=== PATIENT | female | born 1950 | race Caucasian/White ===

== ENCOUNTER 2019-09-26 12:18 | Inpatient (IN) ==
[2019-09-26] MEDS ORDERED: NS 1,000 ML IV ONE ×2 (12:46→12:56)
[2019-09-26] MEDS ORDERED: LANOXIN IV ONE (12:48)
[2019-09-26 12:52] LABS: ALLEN TEST YES; BE -2.9 mmoll (-3.0-3.0); BLOOD TYPE ARTERIAL; HCO3-(ACT) 22.7 mmoll (20.0-26.0); METHB 0.8 % (0.0-1.5); O2(CT) 17.3 mL/dL (15.0-23.0); O2HB 98.1 % (95.0-99.0); PCO2(98.6) 41 mmHg (35-45); PO2(98.6) 348 mmHg (60-100); SAMPLE BLOOD; SAO2 100.4 % (95.0-100.0); THB 11.9 g/dL (11.5-17.4); pH(98.6) 7.35 (7.35-7.45)
[2019-09-26 12:53] LABS: MODALITY NRB
--- NOTE | 2019-09-26 13:13 | Diag Imaging Result Doc PS360 ---
EXAM: CHEST-1 VIEW HISTORY: arrythmia TECHNIQUE: Single view COMPARISON: 09/17/2018 FINDINGS: The lungs are well expanded. The heart is not enlarged. The vessels are not distended. There are no infiltrates. No effusion identified. IMPRESSION: Negative exam. Electronically signed by Elieser Nj 09/26/2019 1:11 PM
[2019-09-26 13:31] LABS: BASO# 0.01 X1000 (0.0-0.2); BASO% 0.1 % (0.0-0.8); EOS# 0.02 X1000 (0.0-0.7); EOS% 0.1 % (0.0-10.0); HEMATOCRIT 37.3 % (37.0-47.0); HEMOGLOBIN 11.9 g/dL (12.0-16.0); IMM GRAN# 0.04 X1000 (0.0-0.04); IMM GRAN% 0.3 % (0.0-0.5); LYMPH# 0.67 X1000 (1.2-3.4); LYMPH% 4.2 % (20.5-51.1); MCH 28.7 PG (27-31); MCHC 31.9 g/dL (33-37); MCV 90.1 FL (81-99); MONO% 8.1 % (1.7-9.3); MPV 12.3 FL (7.4-10.4); NEUT# 13.96 X1000 (1.4-6.5); NEUT% 87.2 % (42.2-75.2); PLT 201 X1000 (130-400); RBC 4.14 XMIL (4.2-5.4); RDW 13.3 % (11.5-14.5)
--- NOTE | 2019-09-26 13:34 | EKG Report ---
Test Performed on : 09/26/2019 12:30:49 PM Test Reason : arrythmia Blood Pressure : / mmHG Vent. Rate : 154 BPM Atrial Rate : 141 BPM P-R Int : 000 ms QRS Dur : 076 ms QT Int : 294 ms P-R-T Axes : 000 052 096 degrees QTc Int : 470 ms Poor data quality, interpretation may be adversely affected Atrial fibrillation. with rapid ventricular response. Cannot rule out Anteroseptal infarct (cited on or before 17-SEP-2018) Abnormal ECG When compared with ECG of 17-SEP-2018 22:28, Atrial fibrillation. has replaced Sinus rhythm. Vent. rate has increased BY 72 BPM Unconfirmed Result
[2019-09-26 13:42] LABS: URINE SOURCE CATH
[2019-09-26 13:54] LABS: BILIRUBIN URINE NEGATIVE (NEGATIVE); BLOOD URINE NEGATIVE (NEGATIVE); COLOR YELLOW; GLUCOSE URINE NEGATIVE (NEGATIVE); KETONE URINE NEGATIVE (NEGATIVE); LEUKOCYTES URINE NEGATIVE (NEGATIVE); NITRITE URINE NEGATIVE (NEGATIVE); PROTEIN URINE 50 mg/dL (NEGATIVE); SP GRAVITY URINE 1.023; TURBIDITY URINE HAZY (CLEAR); UROBILINOGEN URINE NORMAL (NORMAL)
[2019-09-26 13:59] LABS: UR EPITHELIAL CELLS >10 /HPF (<10); URINE BACTERIA NEGATIVE /HPF; URINE WBC <10 /HPF (<10)
[2019-09-26 14:04] LABS: UR AMPHETAMINES QUAL NONE DETECTED (NONE DETECT); UR BARBITUATES QUAL NONE DETECTED (NONE DETECT); UR BENZODIAZEPIN QUAL NONE DETECTED (NONE DETECT); UR CANNABINOIDS QUAL NONE DETECTED (NONE DETECT); UR COCAINE QUAL NONE DETECTED (NONE DETECT); UR METHADONE QUAL NONE DETECTED (NONE DETECT); UR OPIATES QUAL NONE DETECTED (NONE DETECT); UR OXYCODONE QUAL NONE DETECTED (NONE DETECT); UR PCP QUAL NONE DETECTED (NONE DETECT); URINE CASTS GRANULAR PRESENT; URINE SMALL ROUND CELLS NONE SEEN
[2019-09-26 14:17] LABS: AGAP 16; ALB/GLOB RATIO 1.9; ALBUMIN 4.4 g/dL (3.5-5.0); ALKALINE PHOSPHATASE 126 U/L (32-104); BUN 11 mg/dL (8-22); CALCIUM 8.6 mg/dL (8.8-10.2); CHLORIDE 104 mmol/L (98-107); COSMO 284; GLUCOSE 117 mg/dL (70-104); GOT 133 U/L (10-30); GPT 94 U/L (10-36); POTASSIUM 4.1 mmol/L (3.5-5.1); SODIUM 142 mmol/L (136-145); TCO2 22 mmol/L (25-35); TOTAL BILIRUBIN 0.93 mg/dL (0.20-1.00); TOTAL PROTEIN 6.7 g/dL (6.3-8.3)
[2019-09-26 14:27] LABS: INR 1.12; PROTIME 14.6 Seconds (11.0-16.0); PTT 33.7 Seconds (22.3-41.8)
[2019-09-26] MEDS ORDERED: VANCOMYCIN 1 GM/NS 1 GM/250 ML IVPB IV ONE (14:28)
[2019-09-26] MEDS ORDERED: MAXIPIME 1 GM in NS 50 ML IV ONE (14:28)
[2019-09-26] MEDS ORDERED: CARDIZEM IV ONE (14:31)
[2019-09-26] MEDS ORDERED: CARDIZEM 100 MG/NS 100 MG/100 ML IVPB IV SCH (14:45)
--- NOTE | 2019-09-26 15:02 | PROVIDER DOCUMENTATION ---
This chart was entered by Barbie Reina Scribe, acting as scribe for Magdaleno Ny MD. HPI-Cardiac General - General Chief Complaint: Palpitations Stated Complaint: sob chest pain low 02 Time Seen by Provider: 09/26/19 12:43 Source: patient, EMS ([facility]) Allergies/Adverse Reactions: Patient Allergies Allergy/AdvReac Type Severity Reaction Status Date / Time streptokinase Allergy ANAPHYLAXIS Verified 09/17/18 21:45 Home Medications: Home Medication List Medication Instructions Recorded Confirmed Last Taken Type NK [No Home Medications] 09/17/18 09/26/19 Unknown History - History of Present Illness-Cardiac Nature of Presenting Problem: 69 yowf presents to the ed via ems and was cardioverted @ 50 ion and has been is afib since being in ed. pt sts night she cleaned with Clorox and woke saturday morning at 0230am with sob, hurts to breathe. pt sts she has been worsening sx of n/v/d, dizziness, weakness, fatigue, chills and sob since she woke early saturday morning.per ems when AOS pt was lethargic , pale, cool to touch and unable to ambulate. pt had heart rate in 220's. pt sts she has no PCP and does not go to the dr anymore. pt denies any hx of palpitations in the past Location: reports: other (left anterior) Quality of Pain: reports: other (palpitations) Severity in ED: moderate Onset/Duration: other (saturday 0230am) Timing: intermittent, getting worse Context/Activities at Onset: reports: light activity Modifying Factors: worse with: coughing Palpitation Quality: fast/pounding heart beat History of arrythmia: reports: none Recent use of:: reports: no stimulants Nitro Today/Relief: reports: no nitro taken today Aspirin Treatment Today: reports: no aspirin today Prior Chest Pain/Cardiac Workup: reports: heart attack (x3) Associated Symptoms: reports: dizziness, fatigue, fever/chills, nausea, shortness of breath, vomiting Similar Symptoms Previously?: No Recently Seen Here or By Another Healthcare Provider: No Review of Systems - Adult - REVIEW OF SYSTEMS - ADULT Constitutional: reports: see HPI, chills, fatique Eyes: reports: no symptoms reported Ears, Nose, Mouth & Throat: reports: no symptoms reported Cardiovascular: reports: see HPI, palpitations, poor circulation. denies: s yncope Respiratory: reports: see HPI, cough, shortness of breath. denies: wheezing Gastrointestinal: reports: diarrhea, nausea, poor appetite, vomiting Genitourinary: reports: no symptoms reported Musculoskeletal: reports: see HPI, muscle weakness Integumentary: reports: no symptoms reported Neurological: reports: see HPI, dizziness/vertigo, tremors. denies: headache/migraines, slurred speech Psychiatric: reports: no symptoms reported Endocrine: reports: no symptoms reported Hematologic/Lymphatic: reports: no symptoms reported Allergic/Immunologic: reports: no symptoms reported All Other Systems: Reviewed and Negative Past History - Adult - PAST MEDICAL HISTORY-ADULT Review of Records: reports: Old Records Reviewed, Nursing Assessment Review, Medications Reviewed, Social history reviewed & non-contributory. Major Childhood Illnesses: reports: denies history Cardiovascular: reports: [place] (x3 she thinks but has not f/u with cardio) Respiratory: reports: denies history Gastrointestinal: reports: denies history Obstetrical/Gynecological: reports: denies history Genitourinary: reports: denies history Musculoskeletal: reports: denies history Hand Dominance: Right Handed Neurological: reports: denies history Psychiatric: reports: denies history Endocrine/Immune: reports: denies history Other Conditions: reports: denies history - PRIOR SURGERIES/PROCEDURES Surgical/Procedure History: reports: reviewed, not pertinent, cardiac stent - IMMUNIZATION STATUS Childhood Immunizations: See Nurse Assessment Flu Vaccine: See Nurse Assessment - FAMILY HISTORY Family History: reviewed, not pertinent - SOCIAL HISTORY Smoking: denies Substance Use: denies Living Situation: family Physical Exam-General - PHYSICAL EXAM-ADULT Initial Vital Signs Reviewed: Yes (BP-94/56 RR-26 HR-143) - CONSTITUTIONAL General Appearance: alert, mild distress, thin. negative: appears well (ill appearin) - EYES Eyes: PERRL/EOMI, pink conjunctivae - HEAD, EARS, NOSE, MOUTH & THROAT HENMT: other (cyanosis around mouth). negative: moist mucous membranes (dry oral) - NECK Neck: full range of motion, normal inspection - RESPIRATORY Respiratory: chest non-tender, lungs clear, normal breath sounds, increased rate (26), other (c/o lungs burning) - CARDIOVASCULAR Cardiovascular: irregularly irregular (141 sts no hx of afib) - CHEST (BREASTS) Chest/Breast: deferred - GASTROINTESTINAL (ABDOMEN) Abdominal Exam: normal bowel sounds, non tender, soft - GENITOURINARY Female Genitalia/Pelvic Exam: deferred Rectal Exam: normal exam Hemoccult Exam: deferred - LYMPHATIC Lymphatic: no adenopathy - MUSCULOSKELETAL Back Exam: normal inspection, no CVA tenderness, no vertebral tenderness Extremity: normal range of motion, other (cyanosis on finger tips). negative: normal inspection - SKIN Integumentary: cyanosis (around mouth and finger tips), pallor. negative: normal color, warm/dry (cool to touch) - NEUROLOGIC Neurologic: grossly normal - PSYCHIATRIC Psych/Mental Status: normal mood/affect, normal thought content, normal thought process, oriented x 3 - HEART Score HEART Score: History: Slightly Suspicious HEART Score: ECG: Non-Specific Repolarization Disturbance/LBBB/PM HEART Score: Age: > or = 65 Years HEART Score: Risk Factors for Atherosclerotic Disease: 1 or 2 Risk Factors HEART Score: Troponin: < or = Normal Limit Total HEART Score:: 4 Progress - PLAN OF CARE/RESULTS Progress/Plan/Lab Results: Vital Signs - 8 hr 09/26/19 12:18 09/26/19 12:30 09/26/19 12:35 Temperature 99.9 F H Pulse Rate 143 H 145 H Respiratory Rate 26 H 24 Blood Pressure 94/56 94/56 O2 Sat by Pulse Oximetry 100 100 100 09/26/19 12:45 09/26/19 13:00 09/26/19 13:04 Temperature Pulse Rate 150 H 122 H 150 H Respiratory Rate 21 18 Blood Pressure O2 Sat by Pulse Oximetry 86 L 100 09/26/19 13:06 09/26/19 13:15 09/26/19 13:20 Temperature Pulse Rate 151 H 139 H 138 H Respiratory Rate 20 24 24 Blood Pressure 107/85 107/85 O2 Sat by Pulse Oximetry 100 99 100 09/26/19 13:30 09/26/19 13:31 09/26/19 13:45 Temperature Pulse Rate 142 H 149 H 154 H Respiratory Rate 30 H 20 21 Blood Pressure 138/82 O2 Sat by Pulse Oximetry 99 90 L 99 09/26/19 14:00 09/26/19 14:09 09/26/19 14:20 Temperature 97.6 F Pulse Rate 126 H 129 H Respiratory Rate 26 H 23 Blood Pressure 146/102 135/91 O2 Sat by Pulse Oximetry 100 99 09/26/19 14:54 Temperature Pulse Rate 89 Respiratory Rate 23 Blood Pressure 123/69 O2 Sat by Pulse Oximetry 100 Laboratory Results - last 24 hr 09/26/19 09/26/19 09/26/19 12:40 12:56 12:56 WBC 16.00 H RBC 4.14 L Hgb 11.9 L Hct 37.3 MCV 90.1 MCH 28.7 MCHC 31.9 L RDW Std Deviation 13.3 Plt Count 201 MPV 12.3 H Immature Gran % (Auto) 0.3 Neut % (Auto) 87.2 H Lymph % (Auto) 4.2 L [place] % (Auto) 8.1 Eos % (Auto) 0.1 Baso % (Auto) 0.1 Immature Gran # (Auto) 0.04 Neut # (Auto) 13.96 H Lymph # (Auto) 0.67 L [place] # (Auto) 1.30 H Eos # (Auto) 0.02 Baso # (Auto) 0.01 PT INR PTT (Actin FS) Specimen Type ARTERIAL Sample Site L RADIAL pH 7.35 pCO2 41 pO2 348 H HCO3 22.7 Base Excess -2.9 Oxyhemoglobin 98.1 ABG O2 Sat (Calculated) 17.3 ABG O2 Saturation 100.4 H ABG Carboxyhemoglobin 1.50 ABG Methemoglobin 0.8 Giovani Test YES A-a O2 Difference 314.0 Total Hemoglobin 11.9 Lactate 1.20 Liter Flow 15.0 Blood Gas Modality NRB FiO2 % 100.0 Sodium 142 Potassium 4.1 Chloride 104 Carbon Dioxide 22 L Anion Gap 16 BUN 11 Creatinine 1.0 H BUN/Creatinine Ratio 11 Glucose 117 H Calculated Osmolality 284 Calcium 8.6 L Total Bilirubin 0.93 AST 133 H ALT 94 H Alkaline Phosphatase 126 H Troponin T Total Protein 6.7 Albumin 4.4 Globulin 2.3 Albumin/Globulin Ratio 1.9 Plasma Lactate Urine Source Urine Color Urine Turbidity Urine pH Ur Specific [place] Urine Protein Ur Glucose (Stick) Ur Ketones (Stick) Urine Blood Urine Nitrite Urine Bilirubin Urobilinogen Dipstick Urine Leukocytes Urine WBC (Auto) Urine RBC (Auto) U Epithel Cells (Auto) Urine Bacteria (Auto) Urine Crystals Small Round Cells Urine Casts Urine Yeast-like Cells Urine Opiates Screen Ur Oxycodone Screen Ur Methadone, Qual Ur Barbiturates Screen Ur Phencyclidine Scrn Ur Amphetamines Screen U Benzodiazepines Scrn Urine Cocaine Screen U Cannabinoids Screen 09/26/19 09/26/19 09/26/19 12:56 12:56 13:20 WBC RBC Hgb Hct MCV MCH MCHC RDW Std Deviation Plt Count MPV Immature Gran % (Auto) Neut % (Auto) Lymph % (Auto) [place] % (Auto) Eos % (Auto) Baso % (Auto) Immature Gran # (Auto) Neut # (Auto) Lymph # (Auto) [place] # (Auto) Eos # (Auto) Baso # (Auto) PT 14.6 INR 1.12 PTT (Actin FS) 33.7 Specimen Type Sample Site pH pCO2 pO2 HCO3 Base Excess Oxyhemoglobin ABG O2 Sat (Calculated) ABG O2 Saturation ABG Carboxyhemoglobin ABG Methemoglobin Giovani Test A-a O2 Difference Total Hemoglobin Lactate Liter Flow Blood Gas Modality FiO2 % Sodium Potassium Chloride Carbon Dioxide Anion Gap BUN Creatinine BUN/Creatinine Ratio Glucose Calculated Osmolality Calcium Total Bilirubin AST ALT Alkaline Phosphatase Troponin T < 0.010 Total Protein Albumin Globulin Albumin/Globulin Ratio Plasma Lactate 3.6 H Urine Source Urine Color Urine Turbidity Urine pH Ur Specific [place] Urine Protein Ur Glucose (Stick) Ur Ketones (Stick) Urine Blood Urine Nitrite Urine Bilirubin Urobilinogen Dipstick Urine Leukocytes Urine WBC (Auto) Urine RBC (Auto) U Epithel Cells (Auto) Urine Bacteria (Auto) Urine Crystals Small Round Cells Urine Casts Urine Yeast-like Cells Urine Opiates Screen Ur Oxycodone Screen Ur Methadone, Qual Ur Barbiturates Screen Ur Phencyclidine Scrn Ur Amphetamines Screen U Benzodiazepines Scrn Urine Cocaine Screen U Cannabinoids Screen 09/26/19 09/26/19 13:34 13:34 WBC RBC Hgb Hct MCV MCH MCHC RDW Std Deviation Plt Count MPV Immature Gran % (Auto) Neut % (Auto) Lymph % (Auto) [place] % (Auto) Eos % (Auto) Baso % (Auto) Immature Gran # (Auto) Neut # (Auto) Lymph # (Auto) [place] # (Auto) Eos # (Auto) Baso # (Auto) PT INR PTT (Actin FS) Specimen Type Sample Site pH pCO2 pO2 HCO3 Base Excess Oxyhemoglobin ABG O2 Sat (Calculated) ABG O2 Saturation ABG Carboxyhemoglobin ABG Methemoglobin Giovani Test A-a O2 Difference Total Hemoglobin Lactate Liter Flow Blood Gas Modality FiO2 % Sodium Potassium Chloride Carbon Dioxide Anion Gap BUN Creatinine BUN/Creatinine Ratio Glucose Calculated Osmolality Calcium Total Bilirubin AST ALT Alkaline Phosphatase Troponin T Total Protein Albumin Globulin Albumin/Globulin Ratio Plasma Lactate Urine Source CATH Urine Color YELLOW Urine Turbidity HAZY Urine pH 6.0 Ur Specific [place] 1.023 Urine Protein 50 A Ur Glucose (Stick) NEGATIVE Ur Ketones (Stick) NEGATIVE Urine Blood NEGATIVE Urine Nitrite NEGATIVE Urine Bilirubin NEGATIVE Urobilinogen Dipstick NORMAL Urine Leukocytes NEGATIVE Urine WBC (Auto) <10 Urine RBC (Auto) 10-20 A U Epithel Cells (Auto) >10 A Urine Bacteria (Auto) NEGATIVE Urine Crystals Not Reportable Small Round Cells NONE SEEN Urine Casts GRANULAR PRESENT Urine Yeast-like Cells Not Reportable Urine Opiates Screen NONE DETECTED Ur Oxycodone Screen NONE DETECTED Ur Methadone, Qual NONE DETECTED Ur Barbiturates Screen NONE DETECTED Ur Phencyclidine Scrn NONE DETECTED Ur Amphetamines Screen NONE DETECTED U Benzodiazepines Scrn NONE DETECTED Urine Cocaine Screen NONE DETECTED U Cannabinoids Screen NONE DETECTED Orders Category Date Time Status Cardiac Monitoring DIRECTED Care 09/26/19 14:12 Active Notify MD of + Sepsis Screen NOW Care 09/26/19 14:12 Active Notify Physician As Ordered Care 09/26/19 14:12 Active Nursing- Obtain EKG ONCE Care 09/26/19 12:46 Active CHEST-1 VIEW [RAD] Stat Exams 09/26/19 12:46 Completed ABG [RESP] Routine Lab 09/26/19 12:40 Completed ACETAMINOPHEN [TDM] Stat Lab 09/26/19 12:56 Results BLOOD CULTURE [BLDCUL] Stat Lab 09/26/19 12:56 Received CBC WITH DIFF [HEME] Stat Lab 09/26/19 12:56 Completed CK PROFILE [SP CHEM] Stat Lab 09/26/19 12:56 Results COMPREHENSIVE METABOLIC PANEL [CHEM] Stat Lab 09/26/19 12:56 Results LACTATE, PLASMA [CHEM] Lab 09/26/19 16:15 Uncollected LACTATE, PLASMA [CHEM] Stat Lab 09/26/19 13:20 Completed PROTIME WITH INR [COAG] Stat Lab 09/26/19 12:56 Completed PTT [COAG] Stat Lab 09/26/19 12:56 Completed SALICYLATES [TDM] Stat Lab 09/26/19 12:56 Results TROPONIN T Stat Lab 09/26/19 12:56 Completed URINALYSIS W/POSS RFLX CULT [URINALYSIS] Stat Lab 09/26/19 13:34 Completed URINE DRUG SCREEN Stat Lab 09/26/19 13:34 Completed URINE MANUAL MICROSCOPIC [URINALYSIS] Stat Lab 09/26/19 13:34 Completed 0.9% Sodium Chloride Inj [Ns] 1,000 ml Med 09/26/19 12:46 Discontinued IV 999 mls/hr 0.9% Sodium Chloride Inj [Ns] 1,000 ml Med 09/26/19 12:56 Discontinued IV 999 mls/hr CefEPIME [Maxipime] 1 gm Med 09/26/19 14:28 Discontinued 0.9% Sodium Chloride Inj [Ns] 50 ml IV NOW Digoxin [Lanoxin] Med 09/26/19 12:48 Discontinued 500 microgm IV NOW ONE Diltiazem 100 mg/Ns [Cardizem 100 mg/Ns] Med 09/26/19 14:45 Active 100 mg in 100 ml IV As Directed mls/hr Diltiazem [Cardizem] Med 09/26/19 14:31 Discontinued 20 mg IV NOW ONE Vancomycin 1 gm/Ns Med 09/26/19 14:28 Active 1 gm in 250 ml IV NOW Oxygen Device Stat Oth 09/26/19 14:12 Active EKG [EKG] Stat Ther 09/26/19 12:46 Draft Result Diagrams: 09/26/19 12:56 09/26/19 12:56 - REASSESSMENT Reassessment #1 Time Reassessed: 13:06 Status: improving (rectal temp 99.9) - EKG 1 Time of EKG reading by physician:: 12:30 EKG Read and Signed by:: Magdaleno Ny EKG Interpretation (*Must complete 3 of following elements*): Abnormal Rate: 154 Rhythm: afib with rvr [place]: normal QRS: normal OK Interval: normal ST Wave: normal Comments: cannot rule out anteroseptal infarct, age undetermined - XRAY 1 XRAY: Bilateral XRAY Study: Chest Impression: See EMR Report (EXAM: CHEST-1 VIEW HISTORY: arrythmia TECHNIQUE: Single view COMPARISON: 09/17/2018 FINDINGS: The lungs are well expanded. The heart is not enlarged. The vessels are not distended. There are no infiltrates. No effusion identified. IMPRESSION: Negative exam. Electronically signed by Elieser Nj 09/26/2019 1:11 PM 09/26/19 1311 Interpreting Physician: Elieser Nj MD Dictated Date/Time: 09/26/191 cc: Magdaleno Ny MD;) - CONSULTS/PCP/HOSPITALIST Notification #1 *Consult/PCP/Hospitalist*: hospitalist dr fermin Time Discussed: 14:55 Consult Disposition: Admit Departure - Departure Date of Disposition Decision: 09/26/19 Time of Disposition Decision: 14:50 DIAGNOSIS: Atrial fibrillation with RVR Sepsis Qualifiers: Sepsis type: sepsis due to unspecified organism Sepsis acute organ dysfunction status: without acute organ dysfunction Qualified Code(s): A41.9 - Sepsis, unspecified organism Disposition: ADMITTED INPATIENT 09 Certified Medical Emergency: Emergent Condition: Good Referrals and Follow-Ups: None,PCP [Primary Care Provider] - - Critical Care Note This patient required my direct & personal management of CC.: Yes Total Time (mins): 39 Critical Care Statement: This patient required my direct personal management to treat or rule out processes, the absence of which, could potentiallly result in sudden, clinically significant life or limb threatening deterioration. Attestation - Physician/ MOUNIKA Attestation Patient care was provided by Advanced Practice Provider:: No The physician spent face to face time with patient:: Yes Advanced Practice Provider documentation review:: Supervising physician onsite and consulted in the evaluation and care of this patient. The physician did have a face to face encounter with the patient. This chart was documented by the indicated scribe, (Barbie Reina Scribe) and accurately reflects the services I performed and decisions made by me, Magdaleno Ny MD, as attested by the provider's signature.
[2019-09-26 15:03] LABS: ACETAMINOPHEN 3.6 ug/mL (10-30); CK PROFILE 69 U/L (24-173); SALICYLATES < 3.00 mg/dL (3-10)
--- NOTE | 2019-09-26 16:25 | HISTORY AND PHYSICAL ---
PRIMARY CARE PHYSICIAN: None. CHIEF COMPLAINT: Shortness of breath, palpitations, dizziness, nausea, vomiting, diarrhea, weakness, fatigue, and chills that began after she was cleaning her RV with some Clorox and Ajax on night and woke up around 2:30 a.m. Saturday morning with those symptoms. HISTORY OF PRESENTING ILLNESS: This is a 69-year-old female who presents to [facility] via EMS after she states she began having worsening nausea, vomiting, diarrhea, dizziness, weakness, fatigue, chills, shortness of breath and palpitations that began after she was cleaning her RV on afternoon with some Clorox an Ajax states she woke up with those symptoms Saturday morning around 2:30 a.m. and they just progressively worsened. When EMS arrived she had a heart rate in the 220s and EMS attempted cardioversion at 50 joules but patient remained in atrial fibrillation, when she arrived to the emergency room her EKG showed atrial fibrillation with RVR at 154. She was given a loading dose of Cardizem 20 mg IV x1 but had an allergic reaction with red streaking throughout her vein going down her right arm so the Cardizem was discontinued and diltiazem was added to her allergy list. She was tachypneic at 26 with a blood pressure of 94/56 on arrival and was saturating 100% on a non-rebreather. Her white blood cell count was 16. She did have some elevation in her LFTs with an AST of 133, ALT 94, alkaline phosphatase 126. States that she had been taking 650 mg of Tylenol every hour since Saturday morning and also has a plasma lactate level of 3.6. Urinalysis was negative. Her acetaminophen level was 3.6 so she will be admitted to the PVC unit for further evaluation and treatment. PAST MEDICAL HISTORY: Of an [place] x3. PAST SURGICAL HISTORY: Heart stents x3 and a tonsillectomy. FAMILY HISTORY: Reviewed and noncontributory. SOCIAL HISTORY: She currently lives with family. Denies any tobacco, alcohol or illicit drug use. ALLERGIES: To streptokinase and now we will add diltiazem. HOME MEDICATIONS: She does not take any medications on a routine basis. LABORATORY DATA: Showed a white blood cell count of 16, hemoglobin 11.9, hematocrit 37.3, platelets 201,000, PT and INR of 14.6 and 1.12. ABG with a pH of 7.35, pCO2 41, PO2 348, bicarb 22.7 saturating 100% on a nonrebreather. Sodium was 142, potassium 4.1, chloride 104, CO2 22, BUN of 11, creatinine of 1, glucose 117, AST of 133, ALT of 94, alkaline phosphatase 126, plasma lactate was 3.6. Urinalysis was negative. Urine drug screen was negative. Salicylate level was less than 3, acetaminophen level was 3.6. EKG showed atrial fibrillation with RVR at 154. Chest x-ray was negative. REVIEW OF SYSTEMS: She denied any fever. She was positive for chills, dizziness, weakness, fatigue, shortness of breath, denied a cough, was positive for nausea, vomiting, diarrhea, denied any constipation or burning or hurting with urination. PHYSICAL EXAMINATION: On arrival she had a temperature of 99.9 degrees, pulse was 143, respirations 26, blood pressure 94/56, saturating 100% on nonrebreather. GENERAL: This is a 69-year-old female who is lying in the bed and answers questions appropriately. HEENT: Normocephalic, atraumatic. Normal ENT inspection. Oropharynx and nares are clear. Pupils are equal, round, and reactive to light, accommodation. Extraocular movements are intact. NECK: Normal inspection, normal range of motion. LUNGS: Clear to auscultation bilaterally with equal lung expansion and chest wall movement. HEART: With irregular rate and rhythm but no murmurs, rubs, or gallops noted. ABDOMEN: Soft, nontender, nondistended. Bowel sounds are present x4 quadrants. MUSCULOSKELETAL: She had 5/5 strength x4 extremities. NEUROLOGICAL: The cranial nerves 2-12 appear grossly intact. ASSESSMENT: 1. New onset atrial fibrillation with rapid ventricular response. 2. Systemic inflammatory response syndrome with leukocytosis but no clear evidence of a source of infection. 3. Elevated liver function tests most likely secondary to excessive Tylenol use our. OUR PLAN: She will be admitted to the PVC unit, placed on telemetry, O2 per protocol, will place on a healthy heart diet. Will place on metoprolol 5 mg IV q.6 hours p.r.n. Will recheck CBC, CMP and acetaminophen level in the a.m. Urine culture is pending. Again we added the diltiazem to her allergy list. We have consulted Cardiology and further orders after seen by Cardiology and by attending. Dictated by JESSICA Hart for Terrence Jsoe MD cc: JESSICA Hart MD
[2019-09-26] MEDS ORDERED: ZOFRAN IV PRN (16:50)
[2019-09-26] MEDS ORDERED: TYLENOL PO PRN (16:50)
[2019-09-26] MEDS ORDERED: LOPRESSOR IV PRN (16:50)
--- NOTE | 2019-09-26 16:56 | HISTORY AND PHYSICAL ---
ADDENDUM: The patient was seen and examined by me [id number]. All of the laboratory, vital signs, and images were reviewed. This patient presented to the emergency department with atrial fibrillation with RVR. She received a dose of Cardizem, but apparently she had a reaction to this medication. On my physical exam, we can see that her veins are inflamed and red, so we will stop it and we will use metoprolol as needed since her heart rate is better. She has been placed on high-flow oxygen with a Ventimask probably because of hypoxemia. X-ray did not show any abnormality, but she was cleaning with Clorox and Ajax, and she mixed it together last , two days ago. Since then, she has been having chest pain, mostly when she takes a deep breath, so probably she has a chemical pneumonitis. We will continue with oxygen supplementation. I will put this patient on antibiotics. On my exam, there is no wheezing though. She has chest pain when she has a deep inspiration and she described that as a sharp-type pain. On the other hand, this patient will be transferred to the [facility]. Cardiology Department will be consulted. She apparently has a past medical history of coronary artery disease, status post stents a long time ago. She is not on any prescribed medication at home. 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 Time discussing with her, around 15 to 20 minutes. I agree with the rest of the nurse practitioner's assessment and plan. cc: Terrence Jose MD
[2019-09-26] MEDS: LEVAQUIN 500 MG/D5W 500 MG/100 ML IVPB IV SCH (17:04)
[2019-09-26 17:08] LABS: ALLEN TEST YES; BE -3.9 mmoll (-3.0-3.0); BLOOD TYPE ARTERIAL; HCO3-(ACT) 21.9 mmoll (20.0-26.0); METHB 1.2 % (0.0-1.5); O2(CT) 14.8 mL/dL (15.0-23.0); O2HB 97.4 % (95.0-99.0); PCO2(98.6) 35 mmHg (35-45); PO2(98.6) 129 mmHg (60-100); SAMPLE BLOOD; SAO2 99.9 % (95.0-100.0); THB 10.6 g/dL (11.5-17.4); pH(98.6) 7.38 (7.35-7.45)
[2019-09-26 17:09] LABS: MODALITY VENTIMASK
[2019-09-26] MEDS ORDERED: SOLU-MEDROL IV ONE (17:22)
[2019-09-27 06:23] LABS: HEMATOCRIT 31.9 % (37.0-47.0); HEMOGLOBIN 10.1 g/dL (12.0-16.0); LYMPH# 0.57 X1000 (1.2-3.4); LYMPH% 7.6 % (20.5-51.1); MCH 28.4 PG (27-31); MCHC 31.7 g/dL (33-37); MCV 89.6 FL (81-99); MONO# 0.35 X1000 (0.11-0.59); MONO% 4.7 % (1.7-9.3); MPV 12.7 FL (7.4-10.4); NEUT# 6.56 X1000 (1.4-6.5); NEUT% 87.7 % (42.2-75.2); PLT 141 X1000 (130-400); RBC 3.56 XMIL (4.2-5.4); RDW 13.4 % (11.5-14.5); WBC 7.48 X1000 (4.8-10.8)
[2019-09-27 06:32] LABS: ACETAMINOPHEN < 1.2 ug/mL (10-30); AGAP 13; ALB/GLOB RATIO 1.6; ALBUMIN 3.8 g/dL (3.5-5.0); ALKALINE PHOSPHATASE 138 U/L (32-104); BUN 11 mg/dL (8-22); CALCIUM 9.1 mg/dL (8.8-10.2); CHLORIDE 110 mmol/L (98-107); COSMO 289; CREATININE 0.7 mg/dL (0.5-0.9); ESTIMATED GFR > 60; GLUCOSE 143 mg/dL (70-104); GOT 93 U/L (10-30); GPT 74 U/L (10-36); POTASSIUM 4.2 mmol/L (3.5-5.1); SODIUM 144 mmol/L (136-145); TCO2 21 mmol/L (25-35); TOTAL BILIRUBIN 0.47 mg/dL (0.20-1.00); TOTAL PROTEIN 6.2 g/dL (6.3-8.3)
[2019-09-27 07:35] LABS: BANDS 4 % (0-1); LYMPHS 2 % (21-51); SEGS 94 % (42-75)
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
[2019-09-27] MEDS: PREDNISONE PO SCH (09:19)
--- NOTE | 2019-09-27 13:55 | CARDIOLOGY CONSULTATION ---
DATE: 09/27/2019 CHIEF COMPLAINT ON PRESENTATION: Shortness of breath, chest pain, palpitations. HISTORY OF PRESENT ILLNESS: Ms. Palma is a 69-year-old white female who presented to the hospital yesterday with complaints of shortness of breath and chest discomfort. 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 That evening, she began feeling very short of breath and having a pleuritic-type discomfort in her chest, along with significant palpitations. She was apparently seen by EMS at home, and received a cardioversion at 50 joules, but remained in atrial fibrillation. I have no records of this as there is no ambulance run report anywhere in her chart. She was initiated on Cardizem and had some sort of reaction in her extremity where that was injected. At that time I have seen her, she is not having any symptoms. She appears to have converted to sinus rhythm. In addition, the patient took excessive amounts of Tylenol, with a dose of around 7000 to 8000 mg in a 12-hour period for this pleuritic discomfort. She has a transaminitis present. PAST MEDICAL HISTORY: Significant for: 1. Myocardial infarction/coronary disease. Her last echo was a transesophageal echo in 09/2018, showing an EF of 35%. Last cardiac catheterization was in 09/2018 showing a normal left main, LAD had 100% apical lesion, circumflex had a 20% OM1 lesion with 100% mid circumflex lesion that was a small vessel, RCA had a high anterior takeoff, patent mid stent, EF on that study was 35% to 40% with apical hypokinesis noted. She has not followed up with Cardiology since that visit. 2. Hyperlipidemia. SOCIAL HISTORY: She does not smoke. FAMILY HISTORY: Significant for hypertension. REVIEW OF SYSTEMS: A 10-system review of systems is negative. PHYSICAL EXAMINATION: Vital Signs: The patient is afebrile. Her heart rate is 95, blood pressure 131/64. General: She is in no acute distress. HEENT: Oropharynx is moist. Normal dentition. Eye examination shows pink conjunctivae, white sclerae. Neck: No obvious thyromegaly or thyroid tenderness. Cardiovascular: She sounds to be in a regular rate and rhythm. She has no obvious murmurs. She has no S3. No lower extremity edema. No carotid bruits. Chest: Sounds clear bilaterally. She has no increased work of breathing. Abdomen: Soft, nontender, nondistended. She has no obvious organomegaly. Skin: Warm and dry throughout without any rashes. Neurological: Moving all extremities well. PERTINENT DATA: EKG on presentation shows what appears to be rapid atrial fibrillation at a rate of 154 beats per minute. She has no obvious ischemic changes. She had a chest x-ray demonstrating a normal study. Her white count today is 7.4, hematocrit 31, platelet count is 141,000. She has a slight bandemia. Her sodium is 144, potassium 4.2, BUN 11, creatinine 0.7. Her AST and ALT are 93 and 74 today, which is down from the previous. Her albumin is 3.8. Her lipid level is pending. ASSESSMENT: Ms. Palma is a 69-year-old female who presented with rapid atrial fibrillation and chest pain. PLAN: I would proceed with myocardial perfusion imaging tomorrow. She had an echo today, which I will review. I will initiate her on aspirin as well as a beta-leslie. A lipid profile is pending. I would hold off of statin until we have investigated her liver a bit more fully, but I believe the most likely reason for the transaminitis is the excessive Tylenol intake. I had an at length discussion with the patient about her health issues. She seems somewhat flippant about her previous cardiac issues, and now that she has atrial fibrillation, she would benefit from anticoagulation. The patient does not currently have an insurance plan with prescription coverage, and I adamantly recommended that she do this. For the time being, we will initiate medications and investigate with a stress tomorrow. cc: Jesse Rajput MD
--- NOTE | 2019-09-27 14:57 | Diag Imaging Result Doc PS360 ---
EXAM: US ABDOMEN-COMPLETE 09/27/2019 HISTORY: elevated LFTs TECHNIQUE: Abdominal ultrasound COMMENT: The pancreas is unremarkable. The visualized portions of the aorta and inferior vena cava are within normal limits. There are stones in the gallbladder. The liver is unremarkable in appearance. Some of the gallstones exceed 1.6 cm in dimension. There is no evidence of para cholecystic fluid. The gallbladder wall is not thickened. There is no sonographic Barnes sign. There is no evidence of biliary dilatation the common bile duct measuring 4 mm. There is antegrade flow in the portal vein. The spleen is not enlarged. The kidneys are within normal limits. There are no abnormal fluid collections. IMPRESSION: Cholelithiasis. Electronically signed by Bari Wang 09/27/2019 2:54 PM
--- NOTE | 2019-09-27 16:39 | ECHO REPORT ---
ORDER DATE: 09/26/2019 INDICATION: New onset atrial fibrillation. FINDINGS: 1. Right atrium appears normal in size. 2. Mild tricuspid regurgitation. RV systolic pressure of 37. 3. Normal RV size and systolic function. 4. Mild to moderate pulmonic insufficiency. 5. Severe left atrial enlargement with a volume index of 60. 6. No mitral valve prolapse. No mitral stenosis. Moderate mitral regurgitation. 7. Dilated left ventricle with an end-diastolic dimension of 6 cm. Normal wall thicknesses with a posterior and interventricular septal wall thickness of 0.6 and 0.5 cm respectively. Severe reduction in LV systolic function with an estimated EF of 20 to 25 percent. There is global hypokinesis with regional variation. Specifically, there is akinesis of the anterior wall, anterior septum, and portions of the apex. 8. Aortic valve opens well. It is sclerotic but not stenotic. The valve is trileaflet. No insufficiency. 9. Aorta appears normal in visualized segments. 10. There is a suggestion of a pleural effusion but no pericardial effusion. cc: MD Berkley Ramírez CRNP
[2019-09-27] MEDS: LEVAQUIN 500 MG/D5W 500 MG/100 ML IVPB IV SCH (17:49)
[2019-09-27] MEDS: ASPIRIN EC PO SCH (17:50)
[2019-09-27] MEDS: TOPROL XL PO SCH (17:50)
[2019-09-28 06:37] LABS: EOS# 0.05 X1000 (0.0-0.7); EOS% 0.6 % (0.0-10.0); HEMATOCRIT 32.4 % (37.0-47.0); HEMOGLOBIN 10.2 g/dL (12.0-16.0); LYMPH# 1.93 X1000 (1.2-3.4); LYMPH% 24.9 % (20.5-51.1); MCH 28.4 PG (27-31); MCHC 31.5 g/dL (33-37); MCV 90.3 FL (81-99); MONO# 0.61 X1000 (0.11-0.59); MONO% 7.9 % (1.7-9.3); MPV 13.5 FL (7.4-10.4); NEUT# 5.15 X1000 (1.4-6.5); NEUT% 66.6 % (42.2-75.2); PLT 169 X1000 (130-400); RBC 3.59 XMIL (4.2-5.4); RDW 13.6 % (11.5-14.5); WBC 7.74 X1000 (4.8-10.8)
[2019-09-28 07:12] LABS: AGAP 12; ALB/GLOB RATIO 1.3; ALBUMIN 3.6 g/dL (3.5-5.0); ALKALINE PHOSPHATASE 114 U/L (32-104); BUN 17 mg/dL (8-22); CALCIUM 8.3 mg/dL (8.8-10.2); CHLORIDE 109 mmol/L (98-107); COSMO 292; CREATININE 0.8 mg/dL (0.5-0.9); ESTIMATED GFR > 60; GLUCOSE 102 mg/dL (70-104); GOT 60 U/L (10-30); GPT 63 U/L (10-36); IRON SATURATION 26 %; POTASSIUM 3.6 mmol/L (3.5-5.1); SODIUM 146 mmol/L (136-145); TCO2 25 mmol/L (25-35); TIBC 235 ug/dL; TOTAL BILIRUBIN 0.22 mg/dL (0.20-1.00); TOTAL IRON 62 ug/dL (49-151); TOTAL PROTEIN 6.3 g/dL (6.3-8.3); UNBOUND IRON 173 ug/dL (112-346)
[2019-09-28 07:16] LABS: CHOLESTEROL 189 mg/dL (0-200); HDL 37 mg/dL (45-65); LDL 127 mg/dL; TRIGLYCERIDES 127 mg/dL (35-135); VLDL 25 mg/dL
[2019-09-28 07:19] LABS: FERRITIN 285 ng/mL (13-150)
--- NOTE | 2019-09-28 08:04 | EKG Report ---
Test Performed on : 09/27/2019 07:41:00 AM Test Reason : A fib Blood Pressure : / mmHG Vent. Rate : 087 BPM Atrial Rate : 087 BPM P-R Int : 194 ms QRS Dur : 094 ms QT Int : 348 ms P-R-T Axes : 072 049 084 degrees QTc Int : 418 ms Normal sinus rhythm. Septal infarct (cited on or before 17-SEP-2018) Abnormal ECG When compared with ECG of 26-SEP-2019 12:30, (Unconfirmed) Sinus rhythm. has replaced Atrial fibrillation. Vent. rate has decreased BY 67 BPM Questionable change in initial forces of Septal leads Nonspecific T wave abnormality now evident in Anterior leads Confirmed by Carroll PISANO, Roger Zuñiga ([id number]) on 09/28/2019 3:30:28 PM
[2019-09-28] MEDS ORDERED: LASIX IV ONE (08:16)
--- NOTE | 2019-09-28 08:43 | CARDIOLOGY PROGRESS NOTE ---
DATE: 09/28/2019 SUBJECTIVE: Ms. Palma has had some complaints of some tightness and shortness of breath in her chest that began around 4:00 this morning, worse with lying down, improvement with sitting up. OBJECTIVE: Vital Signs: She is afebrile, heart rate 81, blood pressure 148/88. Her I's and O's are negative a total of around 3000 mL, with the number of voids not measured. Cardiovascular: She sounds to be in a regular rate and rhythm. She is in sinus presently. She has no lower extremity edema. Chest: Has some mild basilar rales. No increased work of breathing. Abdomen: Soft, nontender. PERTINENT DATA: Her basic metabolic panel today shows a BUN and creatinine of 17 and 0.8. Her AST and ALT are 60 and 63 respectively. LDL was 127. Her sodium is 146. ASSESSMENT: Ms. Palma is a 69-year-old female who presented with heart failure and new-onset atrial fibrillation. PLAN: She is undergoing perfusion imaging today. I will give her a single IV dose of Lasix as she continues to have some orthopneic-type symptoms and rales on examination. We will check a chest x-ray. She has been initiated on an SAM inhibitor and a beta-leslie. We will likely start her on oral Lasix in the morning versus possibly oral spironolactone. cc: Jesse Rajput MD
--- NOTE | 2019-09-28 10:52 | Diag Imaging Result Doc PS360 ---
CHEST-PORTABLE - 09/28/2019 INDICATION: dyspnea COMPARISON: 09/26/2019 FINDINGS: There is persistent cardiomegaly and pulmonary vascular congestion. There are some faint curly B lines in the lung bases which have reappeared since prior. No dense infiltrates. No pneumothorax or pleural effusion. IMPRESSION: Cardiomegaly. Probable early interstitial pulmonary edema. Electronically signed by Gustavo Daugherty 09/28/2019 10:50 AM
--- NOTE | 2019-09-28 12:08 | PROGRESS NOTE ---
DATE: 09/28/2019 SUBJECTIVE: This morning, Ms. Palma referred to be doing well. Denies any chest pain. No shortness of breath. She is awaiting to do her stress test. OBJECTIVE: Vital Signs: Blood pressure is 148/88, pulse of 81, respirations are 16, temperature is 98.2 degrees. General Examination: Ms. Palma is a 69-year-old, female. She is in bed. No distress. HEENT: Mucosa is pink and moist. Anicteric. Acyanotic. Neck: Supple. Chest: Good air entry bilaterally. No crepitations. No rhonchi. Cardiovascular: Regular rate and rhythm. No murmurs, no rubs, no gallops. GI: Abdomen is soft, nontender. Bowel sounds present. Extremities: No pedal edema. 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 Laboratory Data: WBC is 7.74, hemoglobin is 10.2, platelet count of 169,000. Chemistry is also reviewed. Sodium is 146. Rest of chemistry is unremarkable. AST and ALT are trending down. Ultrasound of the abdomen did show cholelithiasis without any cholecystitis and no evidence of biliary dilation. ASSESSMENT: 1. New onset of atrial fibrillation with rapid ventricular response, currently in sinus and rate control. 2. Cholelithiasis without cholecystitis. The patient has been advised to follow up with surgery on an outpatient basis. 3. Systolic dysfunction with ejection fraction of 20 to 25 percent, associated with akinesis of the anterior wall, anterior septum, and portions of the apex, concerning for coronary artery disease. Patient is pending a stress test today. 4. History of coronary artery disease. According to Ms. Palma, she had stents placed in her coronaries in the past. 5. Elevated liver enzymes. These are trending down. Ultrasound of the liver was unremarkable except for the cholelithiasis. Hepatitis panel is still pending. The patient has been advised to follow up with surgery. 6. Folate deficiency. We will replace this. PLAN: In general, I think Ms. Palma is currently stable. No more shortness of breath. No chest discomfort. She is pending a stress test this morning and we will follow with further recommendations from cardiology. Ms. Palma's ultrasound has revealed cholelithiasis but no evidence of any acute cholecystitis. We think she is currently asymptomatic and she can follow this up with surgery as an outpatient. cc: Heriberto Soria MD
[2019-09-28] MEDS ORDERED: LEXISCAN ONE (14:43)
[2019-09-28] MEDS: PRINIVIL PO SCH (16:25)
[2019-09-28] MEDS: TOPROL XL PO SCH (16:25)
[2019-09-28] MEDS: ASPIRIN EC PO SCH (16:25)
[2019-09-28] MEDS: PREDNISONE PO SCH (16:25)
[2019-09-28] MEDS: LEVAQUIN 500 MG/D5W 500 MG/100 ML IVPB IV SCH (16:36)
--- NOTE | 2019-09-28 17:02 | Diag Imaging Result Document ---
PROCEDURE NAME: MYOCARDIAL PERF SCAN, STR/REST - 09/28/2019 INDICATION: This is a 69-year-old female with chest pain. DESCRIPTION OF PROCEDURE: The patient came into the nuclear lab and received a rest injection of technetium 99 sestamibi 10.7 mCi. Multiple tomographic views of the cardiac structures were obtained at rest. Subsequently the patient underwent a Lexiscan infusion 0.4 mg, at peak infusion was injected with technetium 99 sestamibi 32.5 mCi. Multiple tomographic views of the cardiac structures were obtained following completion of the protocol. SUMMARY OF ELECTROCARDIOGRAPHIC PORTION OF THE STUDY: Resting ECG shows sinus rhythm at rate of 93 beats per minute. Resting blood pressure is 162/87. Resting ECG shows evidence of a septal scar with nonspecific ST-T in the lateral leads and PACs. During the protocol, the heart rate increased to 123 beats per minute. Sinus tachycardia with frequent PACs were noted at peak infusion. PVCs also were noted. Blood pressure dropped to 125/60. The patient reported chest pressure of mild severity that resolved spontaneously. No dyspnea or palpitations. Following the completion of the test, the heart rate and blood pressure returned back to baseline. CONCLUSIONS: In summary, electrocardiographic response to a Lexiscan infusion was negative for ischemia. SUMMARY OF MYOCARDIAL PERFUSION PORTION OF THE STUDY: Poststress tomographic views of the left ventricle showed a severe, extensive apical anterior defect. The rest images showed basically that this defect is extensive and severe and fixed. Polar plots revealed the same. There is an extensive anteroapical scar. No ischemia is noted. Gated SPECT shows decreased ejection fraction of 33% with anteroapical akinesis. End systolic volume is 101 mL. Using the alternative protocol, Myometrics, the ejection fraction is 27%. The lung/heart ratio is elevated. The TID is 0.01, which is normal. CONCLUSIONS: In summary, the study showed: 1. Abnormal resting ECG with an unremarkable response to infusion of Lexiscan. 2. Abnormal poststress myocardial perfusion scan. There is a scintigraphic evidence of an extensive anteroapical scar consistent with an old myocardial infarction. 3. Significantly impaired systolic function. Ventricular ejection fraction is estimated at 33% with the [employer] protocol and 27% with the Myometrics protocol and anteroapical akinesis and enlargement of the left ventricular chamber. 4. The study indicates increased risk for ischemic events. Clinical correlation is recommended. cc: MD Jesse Lamb MD
[2019-09-28] MEDS: LIPITOR PO SCH (20:19)
[2019-09-29 07:42] LABS: AGAP 14; BUN 18 mg/dL (8-22); CALCIUM 9.3 mg/dL (8.8-10.2); CHLORIDE 101 mmol/L (98-107); COSMO 286; CREATININE 0.7 mg/dL (0.5-0.9); ESTIMATED GFR > 60; GLUCOSE 117 mg/dL (70-104); MAGNESIUM 2.1 mg/dL (1.5-2.7); POTASSIUM 3.5 mmol/L (3.5-5.1); SODIUM 142 mmol/L (136-145); TCO2 27 mmol/L (25-35)
--- NOTE | 2019-09-29 07:47 | EKG Report ---
Test Performed on : 09/29/2019 07:40:54 AM Test Reason : change in heart rhythm Blood Pressure : / mmHG Vent. Rate : 109 BPM Atrial Rate : 182 BPM P-R Int : 000 ms QRS Dur : 090 ms QT Int : 350 ms P-R-T Axes : 000 039 085 degrees QTc Int : 471 ms Atrial fibrillation. with rapid ventricular response. with premature ventricular or aberrantly conduc chip complexes. Anteroseptal infarct (cited on or before 17-SEP-2018) Abnormal ECG When compared with ECG of 27-SEP-2019 07:41, Atrial fibrillation. has replaced Sinus rhythm. Questionable change in initial forces of Anterior leads Confirmed by Carroll PISANO, Roger Zuñiga ([id number]) on 09/30/2019 7:31:26 AM
[2019-09-29] MEDS: ASPIRIN EC PO SCH (08:15)
[2019-09-29] MEDS: PREDNISONE PO SCH (08:15)
[2019-09-29] MEDS: TOPROL XL PO SCH (08:15)
[2019-09-29] MEDS: PRINIVIL PO SCH ×3 (08:15→21:06)
[2019-09-29] MEDS: LASIX IV SCH (08:39)
--- NOTE | 2019-09-29 12:15 | EKG Report ---
Test Performed on : 09/29/2019 12:08:03 PM Test Reason : confirm conversion into SR Blood Pressure : / mmHG Vent. Rate : 079 BPM Atrial Rate : 079 BPM P-R Int : 176 ms QRS Dur : 082 ms QT Int : 388 ms P-R-T Axes : 070 037 085 degrees QTc Int : 444 ms Normal sinus rhythm. Anteroseptal infarct (cited on or before 17-SEP-2018) Abnormal ECG When compared with ECG of 29-SEP-2019 07:40, (Unconfirmed) Sinus rhythm. has replaced Atrial fibrillation. Serial changes of Anteroseptal infarct present Confirmed by Carroll PISANO, Roger Zuñiga ([id number]) on 09/30/2019 7:31:57 AM
--- NOTE | 2019-09-29 13:31 | CARDIOLOGY PROGRESS NOTE ---
DATE: 09/29/2019 SUBJECTIVE: Ms. Palma reports she feels much better. She denies any orthopnea. No chest pain. PHYSICAL EXAMINATION: Vital Signs: Afebrile, temperature 98.2 degrees, heart rate 85, blood pressure 132/69. Her I's and O's have been markedly negative for the course of the hospitalization at -6.8 L with 3 voids not measured. General: She is in no acute distress. Cardiovascular: She is in a regular rate and rhythm, which is consistent with sinus rhythm noted on her monitor. Extremities: She has no lower extremity edema. Chest: Continues to have some mild basilar rales. PERTINENT DATA: Her sodium is 142, potassium 3.5, BUN is 18, creatinine 0.7. Her proBNP is 8455. ASSESSMENT: Ms. Palma is a 69-year-old female who has a history of myocardial infarction. She presented in new-onset atrial fibrillation. PLAN: She had a nuclear scan yesterday that demonstrates an ejection fraction in the 25% to 30% range or so. She has anterior apical akinesis and enlargement of the left ventricular chamber with a scar in that territory. There was no significant ischemia on that study. Her chest x-ray yesterday demonstrated continued interstitial pulmonary edema. She had an episode of atrial fibrillation yesterday and was given some extra labetalol. She converted quickly. I believe the low heart rates that she had overnight last night that were asymptomatic and occurring around 3:00 in 4:00 in the morning were likely exaggerated from the additional dose of beta-leslie. I have escalated her lisinopril to 10 b.i.d. Considering her atrial fibrillation and her elevated CHADS- VASc score (she has a score of 5 for age, female sex, CHF, myocardial infarction, hypertension). For now, we will continue on medications. I have initiated Eliquis at a dose of 5 mg b.i.d. in this patient. Risks, benefits, and alternatives to the anticoagulants have been discussed with the patient. She is on high-intensity statin therapy. cc: Jesse Rajput MD
[2019-09-29 15:04] LABS: HEPATITIS PROFILE ACUTE SEE COMMENTS
[2019-09-29] MEDS: LEVAQUIN 500 MG/D5W 500 MG/100 ML IVPB IV SCH (16:22)
[2019-09-29] MEDS: ELIQUIS PO SCH (21:06)
[2019-09-29] MEDS: LIPITOR PO SCH (21:06)
--- NOTE | 2019-09-30 07:35 | Diag Imaging Result Doc PS360 ---
EXAM: CHEST-2 VIEWS HISTORY: hypoxia TECHNIQUE: Two views COMPARISON: 09/28/2019 FINDINGS: The lungs are well expanded. The heart is not enlarged. The vessels are not distended. There are no infiltrates. No pleural effusions. IMPRESSION: No acute abnormality. Electronically signed by Elieser Nj 09/30/2019 7:32 AM
[2019-09-30 07:51] LABS: AGAP 15; BUN 19 mg/dL (8-22); CALCIUM 8.5 mg/dL (8.8-10.2); CHLORIDE 103 mmol/L (98-107); COSMO 288; CREATININE 0.6 mg/dL (0.5-0.9); ESTIMATED GFR > 60; GLUCOSE 84 mg/dL (70-104); MAGNESIUM 2.1 mg/dL (1.5-2.7); POTASSIUM 3.7 mmol/L (3.5-5.1); SODIUM 144 mmol/L (136-145); TCO2 26 mmol/L (25-35)
[2019-09-30] MEDS: TOPROL XL PO SCH (08:45)
[2019-09-30] MEDS: PRINIVIL PO SCH (08:45)
[2019-09-30] MEDS: ASPIRIN EC PO SCH (08:45)
[2019-09-30] MEDS: ELIQUIS PO SCH (08:45)
[2019-09-30] MEDS: PREDNISONE PO SCH (08:45)
[2019-09-30] MEDS: LASIX IV SCH (08:48)
[2019-09-30 11:19] VITALS: BP 118/69
--- NOTE | 2019-10-01 07:25 | DISCHARGE SUMMARY ---
ADMISSION DATE: 09/26/2019 DISCHARGE DATE: 09/30/2019 DISPOSITION: Home. FOLLOWUP: Dr. Jesse Rajput. CONSULTATIONS DURING THIS ADMISSION: Cardiology was consulted. The patient was seen by Dr. Rajput. INVASIVE PROCEDURES DONE DURING THIS ADMISSION: None. IMAGING STUDIES OF SIGNIFICANCE: 1. A chest x-ray was done on 09/26/2019, which was negative. 2. An echocardiogram done on 09/26/2019 showed an ejection fraction of 20% to 25%. 3. A stress test showed an ejection fraction between 27% to 33% with extensive scar consistent with an old myocardial infarction. 4. Repeat chest x-ray did show cardiomegaly, probably early interstitial pulmonary edema. 5. Repeat chest x-ray done on 09/30/2019 showed lungs well-expanded. Heart is not enlarged. Vessels are not distended. No pleural effusions. No acute abnormality. 6. The patient's ProBNP dropped from 8455 to 4179 at the time of discharge. ADMISSION DIAGNOSES: 1. New-onset atrial fibrillation with rapid ventricular response. 2. Systemic inflammatory response. 3. Elevated liver enzymes. DISCHARGE DIAGNOSES: 1. New onset of atrial fibrillation with rapid ventricular response on presentation, currently rate controlled. 2. Cholelithiasis without cholecystitis. Asymptomatic Patient advised to follow up with Surgery on outpatient. 3. Systolic heart failure with ejection fraction of 20% to 25% associated with akinesis of the anterior wall. Stress test confirming the old scar and no ischemia. 4. Ischemic cardiomyopathy with history of stents in the coronaries before. 5. Elevated liver enzymes on admission due to a combination of cholelithiasis and congestive hepatopathy from heart failure. 6. Folate deficiency, replaced. DISCHARGE MEDICATIONS: 1. Lisinopril 20 mg p.o. daily. 2. Metoprolol 25 mg p.o. daily. 3. Furosemide 20 mg p.o. daily. 4. Atorvastatin 40 mg p.o. daily. 5. Aspirin 81 mg p.o. daily. 6. Eliquis 5 mg b.i.d. PRESENTING COMPLAINT: Shortness of breath, dizziness. HISTORY OF PRESENTING COMPLAINT: Ms. Palma is a 69-year-old female with history of coronary artery disease, status post stent 3 times in the past, came to the emergency department because of shortness of breath. Upon presenting, she was evaluated and was found to be in atrial fibrillation with RVR. She was subsequently admitted to the [facility] for critical care management. HOSPITAL COURSE: Ms. Palma was initially started on Cardizem drip. Heart rate got better control. This was switched to p.o. metoprolol. Cardiology was consulted. The patient was seen by Dr. Jesse Rajput. The patient had an echocardiogram, which was remarkably abnormal with an EF of 20% to 25%, so a stress test was done, which showed only scar tissue, but no stress-related ischemia. Ms. Palma remained remarkably stable. Shortness of breath improved and resolved. Repeat chest x-ray this morning is completely normal, and ProBNP has dropped more than half of the admission levels. We think Ms. Palma is now clinically stable for discharge. She is currently in sinus rhythm. PHYSICAL EXAMINATION: Current Vital Signs: Blood pressure is 118/69, pulse of 70, respirations 16, temperature is 98.3 degrees. Physical exam is unremarkable. Chest: Clear. Heart: The heart rate is now in sinus and regular rate. Extremities: No edema in the lower extremities. Ms. Palma, during the hospital course, was found to have cholelithiasis, but this is not symptomatic, so we have advised that she follows up with her primary care doctor and also a surgeon on outpatient basis. TIME SPENT: Time spent for discharge is 37 minutes. cc: MD Jesse Roberts MD MTDD
== END 2019-09-30 13:56 | disposition home or self-care (01) | DRG 308 ==
LOC: ED 12:18 → SUATTDRO 15:54 → ICU 15:54 → 2N 16:12
PROVIDERS: ATTEND Internal Medicine

== ENCOUNTER 2019-10-02 14:20 | Inpatient (IN) ==
--- NOTE | 2019-10-02 15:07 | PROVIDER DOCUMENTATION ---
HPI-Chest Pain - General Chief Complaint: Chest Pain Stated Complaint: CHEST PAINS Time Seen by Provider: 10/02/19 14:41 Source: patient, family (sister present at bedside) Allergies/Adverse Reactions: Patient Allergies Allergy/AdvReac Type Severity Reaction Status Date / Time diltiazem [From Cardizem] Allergy Unknown Verified 10/02/19 15:16 streptokinase Allergy ANAPHYLAXIS Verified 09/17/18 21:45 Home Medications: Home Medication List Medication Instructions Recorded Confirmed Last Taken Type Aspirin EC 81 mg PO DAILY #120 tab 09/29/19 10/02/19 10/02/19 Rx Furosemide [Lasix] 20 mg PO DAILY #30 tab 09/29/19 10/02/19 10/02/19 Rx LISINOpril [Prinivil] 20 mg PO DAILY #120 tab 09/29/19 10/02/19 10/02/19 Rx Metoprolol Succinate E.r. [Toprol 25 mg PO DAILY #120 tab 09/29/19 10/02/19 10/02/19 Rx Xl] Apixaban [Eliquis] 5 mg PO BID #60 tab 09/30/19 10/02/19 10/02/19 05:00 Rx ATORVAstatin [Lipitor] 40 mg PO DAILY 10/02/19 10/02/19 10/02/19 History - History of Present Illness-CP Nature of Presenting Problem: 69 YO F pmh for CAD and self reported hx of multiple MIs, recently seen here and dx with new onset Afib presents with multiple complaints of chest pain that woke her from sleep at 330 today, left sided, radiating to left side of chest, pressure like, and intermittent palpitations, with pain worse on inspiration. Pt states she was seen here last week and tx for new onset Afib, is now on Eliquis. She has appt with cardiology in a few days. She also states that she has pain on inspiration because she was tx for pna during inpatient stay but did not get the last dose of abx by IV because it poured out on the floor. Currently on exam, pt states CP still present, worse with inspiration and giving shallow breaths on exam, otherwise currently NAD. Normal o2 sats. Recent Cardiac workup including echo and stress test. Location: reports: substernal, other (left sided) Timing: still present Context/Activities at Onset: reports: sleep Modifying Factors: improves with: nothing Nitro Today/Relief: no nitro taken today Aspirin Treatment Today: 81 mg x 1 Prior Chest Pain/Cardiac Workup: reports: echocardiography (25-30%), heart attack, stress test (MPS showing EF 25-30% and scaring in apical region) Similar Symptoms Previously?: Yes Recently Seen Here or By Another Healthcare Provider: Yes Review of Systems - Adult - REVIEW OF SYSTEMS - ADULT Constitutional: denies: chills, fever Eyes: reports: no symptoms reported Ears, Nose, Mouth & Throat: reports: no symptoms reported Cardiovascular: reports: chest pain, irregular heart rate, palpitations. denies: edema Respiratory: reports: pleurisy, shortness of breath Gastrointestinal: reports: no symptoms reported Genitourinary: reports: no symptoms reported Integumentary: reports: no symptoms reported Neurological: reports: no symptoms reported Past History - Adult - PAST MEDICAL HISTORY-ADULT Review of Records: reports: Old Records Reviewed Major Childhood Illnesses: reports: denies history Cardiovascular: reports: denies history Respiratory: reports: denies history Gastrointestinal: reports: denies history Obstetrical/Gynecological: reports: denies history Genitourinary: reports: denies history Musculoskeletal: reports: denies history Neurological: reports: denies history Endocrine/Immune: reports: denies history Other Conditions: reports: denies history - PRIOR SURGERIES/PROCEDURES Surgical/Procedure History: reports: reviewed, not pertinent - IMMUNIZATION STATUS Childhood Immunizations: See Nurse Assessment Flu Vaccine: See Nurse Assessment - FAMILY HISTORY Family History: reviewed, not pertinent - SOCIAL HISTORY Living Situation: alone Physical Exam-General - PHYSICAL EXAM-ADULT Initial Vital Signs Reviewed: Yes - CONSTITUTIONAL General Appearance: appears well, alert, no apparent distress - EYES Eyes: PERRL/EOMI, pink conjunctivae - HEAD, EARS, NOSE, MOUTH & THROAT HENMT: normocephalic/atraumatic, moist mucous membranes - NECK Neck: non-tender, full range of motion, supple - RESPIRATORY Respiratory: lungs clear, other (pt taking shallow breaths on exam). negative: crackles, rales, rhonchi, stridor, wheezing - CARDIOVASCULAR Cardiovascular: regular rate, rhythm - GASTROINTESTINAL (ABDOMEN) Abdominal Exam: normal bowel sounds, non tender, soft - MUSCULOSKELETAL Back Exam: normal inspection, no CVA tenderness Extremity: normal range of motion, normal gait - SKIN Integumentary: normal color, normal turgor, warm/dry - NEUROLOGIC Neurologic: grossly normal - PSYCHIATRIC Psych/Mental Status: normal mood/affect, oriented x 3 - HEART Score HEART Score: History: Moderately Suspicious HEART Score: ECG: Non-Specific Repolarization Disturbance/LBBB/PM HEART Score: Age: > or = 65 Years HEART Score: Risk Factors for Atherosclerotic Disease: > or = 3 Risk Factors or History of Atherosclerotic Disease HEART Score: Troponin: 1-3x Normal Limit Total HEART Score:: 7 Progress - PLAN OF CARE/RESULTS Progress/Plan/Lab Results: Vital Signs - 8 hr 10/02/19 14:23 10/02/19 15:00 10/02/19 15:30 Temperature 98.0 F Pulse Rate 80 76 73 Respiratory Rate 16 24 23 Blood Pressure 100/57 O2 Sat by Pulse Oximetry 95 99 99 10/02/19 16:15 10/02/19 16:45 10/02/19 17:00 Temperature Pulse Rate 75 74 73 Respiratory Rate 16 23 20 Blood Pressure O2 Sat by Pulse Oximetry 100 98 99 10/02/19 17:03 10/02/19 17:30 10/02/19 17:31 Temperature Pulse Rate 74 76 76 Respiratory Rate 18 23 22 Blood Pressure 130/69 131/68 O2 Sat by Pulse Oximetry 100 98 98 10/02/19 18:00 10/02/19 18:01 10/02/19 18:30 Temperature Pulse Rate 78 78 80 Respiratory Rate 21 16 20 Blood Pressure 133/68 O2 Sat by Pulse Oximetry 99 99 99 10/02/19 18:31 10/02/19 19:01 10/02/19 19:15 Temperature Pulse Rate 80 88 81 Respiratory Rate 21 21 17 Blood Pressure 131/65 156/137 95/62 O2 Sat by Pulse Oximetry 97 99 96 10/02/19 19:30 10/02/19 19:34 Temperature Pulse Rate 90 105 H Respiratory Rate 15 17 Blood Pressure 108/62 O2 Sat by Pulse Oximetry 98 Laboratory Results - last 24 hr 10/02/19 10/02/19 10/02/19 15:07 15:07 15:08 WBC RBC Hgb Hct MCV MCH MCHC RDW Std Deviation Plt Count MPV Immature Gran % (Auto) Neut % (Auto) Lymph % (Auto) Wilson % (Auto) Eos % (Auto) Baso % (Auto) Immature Gran # (Auto) Neut # (Auto) Lymph # (Auto) Wilson # (Auto) Eos # (Auto) Baso # (Auto) D-Dimer, Quantitative 0.32 Sodium Potassium Chloride Carbon Dioxide Anion Gap BUN Creatinine Estimated GFR/1.73 m2 BUN/Creatinine Ratio Glucose Calculated Osmolality Calcium Total Bilirubin AST ALT Alkaline Phosphatase Creatine Kinase 60 Troponin T 0.242 H [id number]-[id number] Pept Total Protein Albumin Globulin Albumin/Globulin Ratio [facility] 10/02/19 10/02/19 10/02/19 15:08 15:40 15:40 WBC 11.31 H RBC 4.12 L Hgb 11.7 L Hct 36.8 L MCV 89.3 MCH 28.4 MCHC 31.8 L RDW Std Deviation 13.5 Plt Count 287 MPV 11.8 H Immature Gran % (Auto) 1.5 H Neut % (Auto) 59.4 Lymph % (Auto) 20.2 L Wilson % (Auto) 16.5 H Eos % (Auto) 2.1 Baso % (Auto) 0.3 Immature Gran # (Auto) 0.17 H Neut # (Auto) 6.72 H Lymph # (Auto) 2.28 Wilson # (Auto) 1.87 H Eos # (Auto) 0.24 Baso # (Auto) 0.03 D-Dimer, Quantitative Sodium 138 Potassium 3.6 Chloride 98 Carbon Dioxide 28 Anion Gap 12 BUN 18 Creatinine 0.7 Estimated GFR/1.73 m2 > 60 BUN/Creatinine Ratio 26 Glucose 89 Calculated Osmolality 277 Calcium 9.5 Total Bilirubin 0.19 L AST 29 ALT 47 H Alkaline Phosphatase 119 H Creatine Kinase Troponin T [id number]-Glocvireljk Pept 1819 H Total Protein 6.9 Albumin 4.1 Globulin 2.8 Albumin/Globulin Ratio 1.5 [facility] 10/02/19 10/02/19 10/02/19 15:40 17:07 17:07 WBC RBC Hgb Hct MCV MCH MCHC RDW Std Deviation Plt Count MPV Immature Gran % (Auto) Neut % (Auto) Lymph % (Auto) Wilson % (Auto) Eos % (Auto) Baso % (Auto) Immature Gran # (Auto) Neut # (Auto) Lymph # (Auto) Wilson # (Auto) Eos # (Auto) Baso # (Auto) D-Dimer, Quantitative Sodium Potassium Chloride Carbon Dioxide Anion Gap BUN Creatinine Estimated GFR/1.73 m2 BUN/Creatinine Ratio Glucose Calculated Osmolality Calcium Total Bilirubin AST ALT Alkaline Phosphatase Creatine Kinase 36 Troponin T 0.228 H [id number]-G-Ajukxsgerrh Pept Total Protein Albumin Globulin Albumin/Globulin Ratio TSH 0.97 Orders Category Date Time Status Cardiac Monitoring DIRECTED Care 10/02/19 15:16 Active ED: Orthostatic Vital Signs (E DIRECTED Care 10/02/19 15:36 Active Saline Loc NOW Care 10/02/19 15:07 Active CHEST-2 VIEWS [RAD] Stat Exams 10/02/19 15:08 Completed CBC WITH ELECTRONIC DIFF [HEME] Stat Lab 10/02/19 15:40 Completed CK PROFILE [SP CHEM] Stat Lab 10/02/19 15:07 Completed CK PROFILE [SP CHEM] Stat Lab 10/02/19 17:07 Completed COMPREHENSIVE METABOLIC PANEL [CHEM] Stat Lab 10/02/19 15:40 Completed D-DIMER [COAG] Stat Lab 10/02/19 15:07 Completed PRO B-NATRIURETIC PEPTIDE Stat Lab 10/02/19 15:08 Completed TROPONIN T Stat Lab 10/02/19 15:08 Completed TROPONIN T Stat Lab 10/02/19 17:07 Completed TSH Stat Lab 10/02/19 15:40 Completed Morphine Med 10/02/19 16:33 Discontinued 4 mg IV NOW ONE EKG [EKG] Stat Ther 10/02/19 15:07 Draft EKG [EKG] Stat Ther 10/02/19 17:35 Ordered EKG [EKG] Stat Ther 10/02/19 19:43 Ordered CXR showing no evidence of pna or acute cadiopulmonary process, currently afebrile. Will cont with cardiac workup. Result Diagrams: 10/02/19 15:40 10/02/19 15:40 - REASSESSMENT Reassessment #1 Time Reassessed: 19:49 Status: worsening (pt with tachycardia, EKG showing Afib with RVR) - EKG 1 Time of EKG reading by physician:: 14:31 EKG Read and Signed by:: Agus Torres EKG Interpretation (*Must complete 3 of following elements*): Abnormal Rate: 80 Rhythm: NSR with PVCs [place]: normal QRS: PVC's LA Interval: normal ST Wave: non-specific ST changes (old infarct, with age undetermined, unchanged from prior EKG) Prior EKG Comparison: unchanged from prior (09/27/19) 2 Time of EKG reading by physician:: 17:35 EKG Read and Signed by:: Agus Torres EKG Interpretation (*Must complete 3 of following elements*): Abnormal Rate: 75 Rhythm: NSR [place]: normal QRS: normal [place] Interval: normal ST Wave: non-specific ST changes (inversion in V1, unchanged from prior) Prior EKG Comparison: unchanged from prior 3 Time of EKG reading by physician:: 19:48 EKG Read and Signed by:: Yessica Whelan EKG Interpretation (*Must complete 3 of following elements*): Abnormal Rate: 151 Rhythm: Afib with RVE Prior EKG Comparison: changes noted - XRAY 1 XRAY Study: Chest Impression: Normal, See EMR Report (CHEST-2 VIEWS - 10/02/2019 INDICATION: chest pain COMPARISON: 09/30/2019 FINDINGS: The lungs are normally expanded and clear. Heart size and mediastinal contours are normal. No pneumothorax or pleural effusion. IMPRESSION: Negative exam. Electronically signed by Gustavo Daugherty 10/02/2019 3:54 PM 10/02/19 [id number]) - CONSULTS/PCP/HOSPITALIST Notification #1 *Consult/PCP/Hospitalist*: Dr. Soria Time Discussed: 18:15 (states to consult cardiology) #2 Consult: Dr. Barrera Time Discussed: 18:25 (states to admit, and check ddimer) #3 Consult: Dr. Umanzor Time Discussed: 19:49 Consult Disposition: Will see in ED, Admit Departure - Departure Date of Disposition Decision: 10/02/19 Time of Disposition Decision: 19:47 DIAGNOSIS: Chest pain, Elevated troponin Disposition: ADMITTED INPATIENT 09 Certified Medical Emergency: Emergent Condition: Stable Referrals and Follow-Ups: None,PCP [Primary Care Provider] - - Critical Care Note This patient required my direct & personal management of CC.: No Attestation - Physician/ MOUNIKA Attestation The physician spent face to face time with patient:: Yes Advanced Practice Provider documentation review:: Supervising physician onsite and consulted in the evaluation and care of this patient. The physician did have a face to face encounter with the patient.
--- NOTE | 2019-10-02 15:16 | EKG Report ---
Test Performed on : 10/02/2019 2:26:00 PM Test Reason : CP Blood Pressure : / mmHG Vent. Rate : 080 BPM Atrial Rate : 080 BPM P-R Int : 150 ms QRS Dur : 084 ms QT Int : 362 ms P-R-T Axes : 060 039 087 degrees QTc Int : 417 ms Sinus rhythm. with occasional premature ventricular complexes. Septal infarct (cited on or before 17-SEP-2018) Abnormal ECG When compared with ECG of 29-SEP-2019 12:08, premature ventricular complexes. are now present Questionable change in initial forces of Anterior leads Nonspecific T wave abnormality now evident in Lateral leads Unconfirmed Result
[2019-10-02 15:51] LABS: BASO# 0.03 X1000 (0.0-0.2); BASO% 0.3 % (0.0-0.8); EOS# 0.24 X1000 (0.0-0.7); EOS% 2.1 % (0.0-10.0); HEMATOCRIT 36.8 % (37.0-47.0); HEMOGLOBIN 11.7 g/dL (12.0-16.0); IMM GRAN# 0.17 X1000 (0.0-0.04); IMM GRAN% 1.5 % (0.0-0.5); LYMPH# 2.28 X1000 (1.2-3.4); LYMPH% 20.2 % (20.5-51.1); MCH 28.4 PG (27-31); MCHC 31.8 g/dL (33-37); MCV 89.3 FL (81-99); MONO# 1.87 X1000 (0.11-0.59); MONO% 16.5 % (1.7-9.3); MPV 11.8 FL (7.4-10.4); NEUT# 6.72 X1000 (1.4-6.5); NEUT% 59.4 % (42.2-75.2); PLT 287 X1000 (130-400); RBC 4.12 XMIL (4.2-5.4); RDW 13.5 % (11.5-14.5); WBC 11.31 X1000 (4.8-10.8)
--- NOTE | 2019-10-02 15:56 | Diag Imaging Result Doc PS360 ---
CHEST-2 VIEWS - 10/02/2019 INDICATION: chest pain COMPARISON: 09/30/2019 FINDINGS: The lungs are normally expanded and clear. Heart size and mediastinal contours are normal. No pneumothorax or pleural effusion. IMPRESSION: Negative exam. Electronically signed by Gustavo Daugherty 10/02/2019 3:54 PM
[2019-10-02] MEDS ORDERED: MORPHINE IV ONE (16:33)
[2019-10-02 16:34] LABS: AGAP 12; ALB/GLOB RATIO 1.5; ALBUMIN 4.1 g/dL (3.5-5.0); ALKALINE PHOSPHATASE 119 U/L (32-104); BUN 18 mg/dL (8-22); CALCIUM 9.5 mg/dL (8.8-10.2); CHLORIDE 98 mmol/L (98-107); COSMO 277; CREATININE 0.7 mg/dL (0.5-0.9); ESTIMATED GFR > 60; GLUCOSE 89 mg/dL (70-104); GOT 29 U/L (10-30); GPT 47 U/L (10-36); POTASSIUM 3.6 mmol/L (3.5-5.1); SODIUM 138 mmol/L (136-145); TCO2 28 mmol/L (25-35); TOTAL BILIRUBIN 0.19 mg/dL (0.20-1.00); TOTAL PROTEIN 6.9 g/dL (6.3-8.3)
[2019-10-02] MEDS ORDERED: ISOPTIN IV ONE (19:54)
[2019-10-02] MEDS ORDERED: LOPRESSOR IV ONE (19:54)
[2019-10-02] MEDS ORDERED: NS 1,000 ML IV ONE (19:56)
--- NOTE | 2019-10-02 20:03 | EKG Report ---
Test Performed on : 10/02/2019 7:43:19 PM Test Reason : tachycardia Blood Pressure : / mmHG Vent. Rate : 151 BPM Atrial Rate : 133 BPM P-R Int : 000 ms QRS Dur : 072 ms QT Int : 294 ms P-R-T Axes : 000 046 083 degrees QTc Int : 465 ms Atrial fibrillation. with rapid ventricular response. Septal infarct (cited on or before 17-SEP-2018) T wave abnormality, consider lateral ischemia Abnormal ECG When compared with ECG of 02-OCT-2019 17:31, (Unconfirmed) Atrial fibrillation. has replaced Sinus rhythm. Vent. rate has increased BY 76 BPM Questionable change in initial forces of Anterior leads Non-specific change in ST segment in Lateral leads Inverted T waves have replaced nonspecific T wave abnormality in Lateral leads Unconfirmed Result
--- NOTE | 2019-10-02 20:07 | EKG Report ---
Test Performed on : 10/02/2019 5:31:40 PM Test Reason : CP Blood Pressure : / mmHG Vent. Rate : 075 BPM Atrial Rate : 075 BPM P-R Int : 152 ms QRS Dur : 082 ms QT Int : 396 ms P-R-T Axes : 042 021 083 degrees QTc Int : 442 ms Normal sinus rhythm. Anteroseptal infarct (cited on or before 17-SEP-2018) Abnormal ECG When compared with ECG of 02-OCT-2019 17:26, (Unconfirmed) premature atrial complexes. are no longer present Unconfirmed Result
[2019-10-02] MEDS ORDERED: LANOXIN IV ONE ×2 (20:35→21:13)
[2019-10-02] MEDS ORDERED: TYLENOL PO PRN (21:13)
[2019-10-02] MEDS ORDERED: SODIUM CHLORIDE 0.9% INJ SCH (21:13)
[2019-10-02] MEDS ORDERED: DILAUDID IV PRN (21:13)
[2019-10-02] MEDS ORDERED: LOPRESSOR IV SCH (21:13)
[2019-10-02] MEDS ORDERED: ZOFRAN IV PRN (21:13)
[2019-10-02] MEDS ORDERED: NITROGLYCERIN TOP ONE (21:13)
--- NOTE | 2019-10-02 21:50 | HISTORY AND PHYSICAL ---
REASON FOR ADMISSION: Chest pain 9 hours ago. HISTORY OF PRESENT ILLNESS: Ms. Tracey Palma is a 69-year-old woman who was recently discharged from our facility 2 days ago for chest pain and atrial fibrillation with RVR. She was put on anticoagulation i.e. Eliquis at that time. She also has a history of coronary artery disease. She has a history of hypertension also. She comes in today complaining of sudden pressure-like chest pain 9 hours ago, which awakened her from sleep. She said the pain was similar, felt lightheaded, had some nausea. She denied any lower extremity swelling, PND, orthopnea; however, she did admit that whenever she tried walking that she was having intermittent lower back discomfort accompanied by lower extremity weakness. This is rather sporadic and will last a few minutes and then she will be back to her normal self. No discoloration in her legs. No cough, fever, chills. No GI or complaints otherwise. While she was in the ER, her heart went into atrial fibrillation and RVR in the 150 to 160 range and she says it has worsened her chest pressure at this point in time. She was given 4 mg of morphine without any relief. Dr. Barrera was contacted and he said the patient is to stay in- house over the weekend. Troponins were mildly elevated, remained elevated, although CK was normal. REVIEW OF SYSTEMS: Twelve-system review was done. Positive findings per HPI. ALLERGIES: To Cardizem and streptokinase. HOME MEDICATIONS: Patient is on Eliquis 5 mg b.i.d., atorvastatin 40 mg daily, aspirin 81 mg daily, Lasix 20 mg daily, Prinivil 20 mg daily, Toprol is 25 mg daily. SOCIAL HISTORY: Lives with family. Does not smoke, drink or use drugs. FAMILY HISTORY: Negative for any heart disease but positive for lung cancer and strokes. SURGICAL HISTORY: She has had 3 stents and tonsillectomy. LABORATORY WORK: White count 11,000, hemoglobin and hematocrit 11 and 36, platelets 287,000 with normal differential. Potassium 3.6, BUN 18, creatinine 0.7, AST 29, ALT 47, alkaline phosphatase 119. Troponin 0.228 and the last 1 was 0.242. CK x2 normal. ProBNP 1200. TSH normal. D-dimer negative. DIAGNOSTIC DATA: Chest film is essentially negative. EKG showed atrial fibrillation with slight ST depression in the lateral leads. There are some artifacts that are difficult to further interpret things. Questionable Q-waves in the anteroseptal leads. Rate 150. PHYSICAL EXAMINATION: GENERAL: Middle-aged woman who is slightly anxious, in mild distress from her pain. VITAL SIGNS: Her heart rate was in the 160s when I saw her. Blood pressure 180/60, respiratory rate is 20, temperature is 98. She is 98% on room air. HEAD: Normocephalic, atraumatic. EYES: CHANDRA, EOMI. He is anicteric not pale. ENT: Oropharyngeal exam is grossly normal. NECK: Supple. No JVD or carotid bruit. No thyromegaly. CHEST: Few bibasilar crepitations heard but otherwise good air entry in both lung thibodeaux. CARDIOVASCULAR: First and second heart sounds heard. No gallops, murmurs, rubs. Rhythm is irregular. ABDOMEN: Full, soft. No tenderness or megaly. Bowel sounds are normal. RECTAL: Deferred at this time. EXTREMITIES: No edema, clubbing or cyanosis. Good distal pulse volumes palpated and symmetrical but irregular. NEUROLOGICAL EXAM: Grossly normal. No focal deficits appreciated. SKIN: Intact. No breakdown, lesion, erythema. MUSCULOSKELETAL: Exam is grossly normal. ASSESSMENT: 1. Chest pain ? ischemic etiology, could be tachycardia induced. 2. Atrial fibrillation with rapid ventricular rate. 3. Hypertension. 4. Hyperlipidemia. 5. Coronary artery disease. PLAN: The patient will undergo serial cardiac enzymes. Dr. Barrera is aware of the patient and will see patient tomorrow. We will continue all risk-modifying medications, i.e., statin and aspirin. The patient is already on Eliquis so no role for heparin at this point in time. If the patient is having chest pain with a true cardiac etiology, the fact that CKs are normal makes me think the acute event may have passed earlier on or the patient may just have some mild demand non- STEMI at rest. Consider dual antiplatelet therapy at this point in time and possible referral for cardiac cath. Lower back pain with walking and intermittent weakness could spinal or vascular ?Leriche syndrome. Please evaluate further. Since the patient is allergic to Cardizem and blood pressure is marginal, we will give patient digoxin with some moderate doses of metoprolol for rate control. Failing this, may consider starting patient on amiodarone and amiodarone drip. In light of the patient's liver enzymes and the patient being on statin, the patient's LFTs also need to be monitored closely. She is going to be on amiodarone. cc: Noreen Umanzor MD MTDD
[2019-10-02] MEDS: ASPIRIN PO SCH (23:48)
[2019-10-02] MEDS: ELIQUIS PO SCH (23:48)
[2019-10-02] MEDS: PROTONIX IV SCH (23:48)
[2019-10-03] MEDS ORDERED: LANOXIN IV SCH (00:30)
[2019-10-03] MEDS: LANOXIN IV SCH ×2 (00:59→03:46)
[2019-10-03] MEDS ORDERED: LOPRESSOR IV SCH (02:20)
[2019-10-03] MEDS: LOPRESSOR IV SCH ×4 (02:20→14:17)
[2019-10-03 03:02] LABS: BASO# 0.02 X1000 (0.0-0.2); BASO% 0.3 % (0.0-0.8); EOS# 0.19 X1000 (0.0-0.7); EOS% 2.4 % (0.0-10.0); HEMATOCRIT 32.1 % (37.0-47.0); HEMOGLOBIN 10.2 g/dL (12.0-16.0); IMM GRAN# 0.13 X1000 (0.0-0.04); IMM GRAN% 1.7 % (0.0-0.5); LYMPH# 2.26 X1000 (1.2-3.4); LYMPH% 28.9 % (20.5-51.1); MCH 28.5 PG (27-31); MCHC 31.8 g/dL (33-37); MCV 89.7 FL (81-99); MONO# 1.36 X1000 (0.11-0.59); MONO% 17.4 % (1.7-9.3); MPV 11.5 FL (7.4-10.4); NEUT# 3.86 X1000 (1.4-6.5); NEUT% 49.3 % (42.2-75.2); PLT 242 X1000 (130-400); RBC 3.58 XMIL (4.2-5.4); RDW 13.5 % (11.5-14.5); WBC 7.82 X1000 (4.8-10.8)
[2019-10-03 03:32] LABS: AGAP 12; ALB/GLOB RATIO 2.1; ALBUMIN 3.4 g/dL (3.5-5.0); ALKALINE PHOSPHATASE 97 U/L (32-104); BUN 13 mg/dL (8-22); CALCIUM 8.1 mg/dL (8.8-10.2); CHLORIDE 105 mmol/L (98-107); COSMO 283; CREATININE 0.6 mg/dL (0.5-0.9); ESTIMATED GFR > 60; GLUCOSE 102 mg/dL (70-104); GOT 17 U/L (10-30); GPT 31 U/L (10-36); POTASSIUM 4.2 mmol/L (3.5-5.1); SODIUM 142 mmol/L (136-145); TCO2 25 mmol/L (25-35); TOTAL BILIRUBIN 0.35 mg/dL (0.20-1.00)
[2019-10-03] MEDS: PRILOSEC PO SCH ×2 (05:58→06:05)
[2019-10-03] MEDS: ASPIRIN PO SCH (08:14)
[2019-10-03] MEDS: LASIX PO SCH (08:15)
[2019-10-03] MEDS: LIPITOR PO SCH (08:15)
[2019-10-03] MEDS: ELIQUIS PO SCH ×2 (08:15→20:27)
[2019-10-03] MEDS: LOPRESSOR PO SCH ×4 (10:07→20:29)
[2019-10-03] MEDS: ALDACTONE PO SCH (10:07)
--- NOTE | 2019-10-03 12:28 | PROGRESS NOTE ---
DATE: 10/03/2019 This morning Ms. Palma refers to be doing a little better. She denies any chest pain. She said she did have a pressure on her chest yesterday and that her left lung was hurting and that was reason why she had to come back. Upon presentation, she was found to have an elevated troponin, which seems to be now trending down. OBJECTIVE: Vital signs: Blood pressure is now 128/58, pulse is about 87, respirations 14, temperature 97.7 degrees. Patient is saturating 100% on 2 L. General: Ms. Palma is a 69-year- old female. She is in bed, no distress. HEENT: Mucosa is pink and moist. Anicteric. Acyanotic. Neck: Supple. Chest: Good air entry bilateral. There were no crepitations, no rhonchi. Cardiovascular: Irregularly irregular, but it was rate controlled, but there were no murmurs, no rubs. GI: Abdomen was soft, nontender. Bowel sounds were present. Extremities: No pedal edema. SPEECH CLINICIAN: Patient was awake, alert, and oriented. LABORATORY DATA: WBC is 7.82, hemoglobin is 10.2, platelet count of 242,000. Chemistry is also reviewed, it is completely within normal range. Troponin is 0.24, is now down to 0.1197. EKG on admission did show normal sinus rhythm with occasional PVCs, some T-waves inversion in the lateral leads. An EKG which was later on done at about 1943 shows atrial fibrillation with rapid ventricular response. The patient is still currently in atrial fibrillation. ASSESSMENT: 1. Non STEMI. The patient is currently on heart medications, has been evaluated by Cardiology. Of note, Ms. Palma last admission she did have a stress test which showed an extensive anteroseptal scar consistent with an old myocardial infarction. No mention of any ischemia. Her ejection fraction on that stress test was between 27% to 33 %. From the Cardiology report the last visit, it appears Ms. Palma had an a left heart catheterization on 09/28/2018 in [place], which showed an ejection fraction of about 25% with 100% LAD occlusion, 20% circ lesion and a stent in the RCA which looked patent. 2. Paroxysmal atrial fibrillation with RVR. This is currently rate controlled. Patient is on AV frances blockers. 3. Follow deficiency on previous admission noted. 4. Cholelithiasis without cholecystitis. 5. Ischemic cardiomyopathy noted. For now Ms. Palma is on aspirin, is on Eliquis, high statin dose Lasix. Metoprolol has been advanced to 25 b.i.d. q.6. Currently rate controlled but still in atrial fibrillation. We are going to continue with further recommendations from Cardiology. cc: Heriberto Soria MD MTDD
[2019-10-03] MEDS ORDERED: CARDIZEM PO SCH (13:00)
--- NOTE | 2019-10-03 15:11 | CARDIOLOGY CONSULTATION ---
DATE: 10/03/2019 CONSULTATION REQUESTED BY: Hospitalist service. REASON FOR CONSULTATION: Chest pain, arrhythmia. HISTORY: Mrs. Palma is a 69-year-old, female who was admitted to this hospital just few days ago on September 26 and discharged on September 30. The patient initially presented complaining of chest pains. Her electrocardiograms showed sinus rhythm with evidence of old septal CA and they only did 1 single set of troponin levels during that entire admission. Somehow she showed evidence of paroxysmal atrial fibrillation and she was treated with a low dose of beta- leslie anticoagulant and discharged home on the . A nuclear stress test was done on September 28 prior to sending her home and that study which I read myself shows evidence of an extensive anteroapical scar consistent with an old infarction. Ejection fraction appears to be by nuclear imaging in the range of 27 to 33 percent. An echocardiogram was done and read by Dr. Rajput and he said that the ejection fraction was in the 20 to 25 percent. At any rate, the patient got home on the and the following day, she started having some discomfort in the chest and on 10/02/2019, she woke up at about 3:30 in the morning feeling sharp shooting pleuritic pains in the left upper chest. This was waxing and waning. She got very concerned about it and call the office. Eventually, she decided to come to the emergency room for further assessment. This time they have checked incessantly troponin levels, a total of 4 and the first one is 0.242, the 2nd one is 0.228, a next one 0.211 and the last 0.197 and they have become very concerned about it. Meanwhile the patient's first EKG which was sinus rhythm changed to atrial fibrillation with rapid response and then back to sinus rhythm. It appears as if the patient is really having paroxysms of rapid atrial fibrillation and that is probably what is causing her symptoms. PAST MEDICAL HISTORY: As stated before is positive for severe coronary heart disease. The patient states that around 1991 or 1993, she was living in [place], [place] and suffered a myocardial infarction. She was taken to [place] where apparently they did a stent of an unknown vessel and then subsequently she suffered a heart attack and had to be given streptokinase. Eventually that resolved. She moved to [place] in the year 1999 and then in 2006 she presented to the [facility] with sudden onset of chest pains, 05/20/2007. At that time, Dr. Kasey Crawford performed a heart catheterization and he reported that the LAD had a 40 to 50 percent mid stenosis at the level of the 2nd diagonal branch. The LAD was a small caliber and appeared to be diffusely diseased. Right coronary artery had severe stenosis in the midportion of the vessel. The circumflex appeared to be angiographically normal. At that time Dr. Crawford performed a stent to the right coronary artery using intravascular ultrasound and he achieved great angiographic results. The patient since then has been relatively asymptomatic until a year ago in September 2018, presented to this emergency room department with chest pains. They at that time diagnosed acute coronary syndrome. Her troponin level at that time was mildly elevated. She was sent to [facility] and Dr. Guaman performed a heart catheterization that showed that the LAD was patent all the way to its apical portion where it became acutely occluded, possibly because of embolic phenomena. The circumflex had a 20% or lesion in the 1st OM and then it became totally occluded with collaterals from left to left and also from right to left. The right coronary artery was patent. It was a large dominant vessel with a patent stent and no significant stenosis. Ejection fraction of the left ventricle at the time was estimated to be at 35 to 40 percent. LVEDP was 14 mm. The patient has not followed with any physician. She has not been taking any medication until this recent admission. SURGICAL HISTORY: She had tonsillectomy. No other significant condition. MEDICINES: Are apixaban 5 mg twice a day, aspirin 81 daily, Lipitor 40 daily, furosemide 20 daily, lisinopril 20 daily, metoprolol succinate 25 mg daily. FAMILY HISTORY: Negative for heart disease in the first-degree relatives. She has sisters that of cancer. SOCIAL HISTORY: She is . She lives currently with her mother in [place]. Mother has dementia. They shared portions of the same property, although she says that she lives independently. She is not a smoker nor drinker. ALLERGIES: Diltiazem according to records. REVIEW OF SYSTEMS: She is generally active. She has no issues with weight loss, appetite, sleep, etc. No major musculoskeletal problems. Showed no positives in the review of systems. PHYSICAL EXAMINATION: At this time blood pressure is 128/58, temperature 97.7 degrees, pulse 63, respirations 14. General: Patient is awake, alert, oriented, in no distress. HEENT: Unremarkable. Chest: Sounds clear to auscultation and percussion. Heart: Sounds are regular rhythmic. No gallop or murmur. Abdomen: Nontender, soft, no masses, no hepatomegaly. Extremities: Show good pulses. No peripheral edema. Neuro: Nonfocal. Moves 4 extremities. BLOOD WORK: Her hemoglobin is 10.2, hematocrit 32.1. Sodium 142, potassium 4.2, BUN 13, creatinine 0.6. IMPRESSION: 1. Patient who presents with atypical chest discomfort, pleuritic with elevation of troponin level. This may represent a non ST elevation myocardial infarction, however, the most likely explanation for her coming back to hospital is the fact that she is having recurrent paroxysmal atrial fibrillation with rapid response. 2. History of previous myocardial infarction with chronic left ventricular systolic function. 3. History of previous stent to right coronary artery. 4. Hyperlipidemia. Historically, her LDL has been high. 5. Medical noncompliance. RECOMMENDATION: At this time, we will put her on around the clock doses of metoprolol tartrate. Continue Eliquis. We will see how she does in the hospital. We may have to add amiodarone. My only concern is that her liver function tests showed that her alkaline phosphatase was slightly elevated at the time of admission. We will probably suggest to try a low dose of spironolactone. We will see how she does over the next 2 or 3 days. Upon discharge from the hospital, the patient is going to follow up with Dr. Jesse Rajput who would be the plate mill mill hand of record. cc: Osman Barrera MD [facility]
[2019-10-03] MEDS: PROTONIX IV SCH (20:28)
--- NOTE | 2019-10-03 22:13 | EKG Report ---
Test Performed on : 10/03/2019 3:20:15 PM Test Reason : RHYTHM CHANGE Blood Pressure : / mmHG Vent. Rate : 072 BPM Atrial Rate : 072 BPM P-R Int : 164 ms QRS Dur : 088 ms QT Int : 334 ms P-R-T Axes : 044 051 100 degrees QTc Int : 365 ms Sinus rhythm. with occasional premature ventricular complexes. Anterior infarct (cited on or before 17-SEP-2018) Abnormal ECG When compared with ECG of 02-OCT-2019 19:43, (Unconfirmed) Sinus rhythm. has replaced Atrial fibrillation. Vent. rate has decreased BY 79 BPM Serial changes of Anterior infarct present Unconfirmed Result
[2019-10-04] MEDS: LOPRESSOR PO SCH ×6 (02:53→21:57)
[2019-10-04] MEDS: PRILOSEC PO SCH (06:05)
[2019-10-04 06:39] LABS: AGAP 13; BUN 10 mg/dL (8-22); CALCIUM 9.3 mg/dL (8.8-10.2); CHLORIDE 101 mmol/L (98-107); COSMO 283; CREATININE 0.7 mg/dL (0.5-0.9); ESTIMATED GFR > 60; GLUCOSE 87 mg/dL (70-104); POTASSIUM 3.9 mmol/L (3.5-5.1); SODIUM 143 mmol/L (136-145); TCO2 29 mmol/L (25-35)
[2019-10-04] MEDS: ASPIRIN PO SCH (08:06)
[2019-10-04] MEDS: LIPITOR PO SCH (08:06)
[2019-10-04] MEDS: ELIQUIS PO SCH ×2 (08:06→20:10)
[2019-10-04] MEDS: ALDACTONE PO SCH (08:06)
[2019-10-04] MEDS: LASIX PO SCH (08:06)
--- NOTE | 2019-10-04 09:27 | EKG Report ---
Test Performed on : 10/04/2019 09:47:38 AM Test Reason : paroxysmal atrial fibrillation Blood Pressure : / mmHG Vent. Rate : 064 BPM Atrial Rate : 064 BPM P-R Int : 164 ms QRS Dur : 084 ms QT Int : 370 ms P-R-T Axes : 068 076 096 degrees QTc Int : 381 ms Sinus rhythm. with premature atrial complexes. Septal infarct (cited on or before 17-SEP-2018) Abnormal ECG When compared with ECG of 03-OCT-2019 15:20, (Unconfirmed) premature ventricular complexes. are no longer present premature atrial complexes. are now present Questionable change in initial forces of Anteroseptal leads Unconfirmed Result
--- NOTE | 2019-10-04 09:56 | PROGRESS NOTE ---
DATE: 10/04/2019 SUBJECTIVE: This morning Ms. Palma refers to be doing well except that she has deep chest pain whenever she takes in a deep breath. According to her on the left upper lobe she thinks is from her lungs. OBJECTIVE: Vital signs: Blood pressure is 111/54, pulse of 63, respirations 22, temperature is 98.7 degrees. General: Ms. Palma is 69-year-old female she is in bed no distress. HEENT: Mucosa is pink and moist. Anicteric. Acyanotic. Neck: Supple. Chest: Clear. Cardiovascular: Regular rate and rhythm. Abdomen: Soft, nontender. Bowel sounds were present. Extremities: No pedal edema. 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 There is no focal neurological deficit. LABORATORY DATA: Chemistry which was done today is completely normal. CURRENT MEDICATIONS: Have also been reviewed. DATA: Of note, patient's EKG shows normal sinus rhythm with occasional PACs. ASSESSMENT: 1. Elevated troponin's on presentation concerning for non ST elevation myocardial infarction versus demand ischemia from tachyarrhythmia. 2. Paroxysmal atrial fibrillation with rapid ventricular response on presentation. Patient is currently in sinus with occasional paroxysmal atrial contractions. She is on a beta leslie. 3. Folate deficiency on prior admission. Patient is on supplementation. 4. Cholelithiasis without cholecystitis. The patient has been notified about this condition and she has been advised to follow up with surgery. 5. Ischemic cardiomyopathy with status post stents in the past. 6. Systolic dysfunction with ejection fraction of 25%. The patient is currently euvolemic. 7. Chest pain. Ms. Palma this morning refers to have deep pain in the left lungs. She was on a blood thinner before she came in, so I do not believe she has pulmonary embolus. However she narrates what seems to be a pleuritic chest pain. We are going to do a chest CT scan of the chest to see what could be potentially causing this. Her initial chest x-ray on presentation was unremarkable. cc: Heriberto Soria MD
--- NOTE | 2019-10-04 11:39 | CARDIOLOGY PROGRESS NOTE ---
DATE: 10/04/2019 CHIEF COMPLAINT: Pleuritic chest pain and irregular heartbeat. SUBJECTIVE: The patient was in atrial fibrillation through the night. She has converted about 3 a.m. She is in sinus rhythm now. She is feeling better. OBJECTIVE: Blood pressure is 111/54, temperature 98.7, pulse 62, respirations 22. She is awake, alert, oriented, in no distress. HEENT is unremarkable. Chest sounds clear to auscultation and percussion. Heart sounds regular and rhythmic. Occasional extrasystole. No gallop or murmur. Abdomen is nontender. Extremities showed good pulses, no edema. Neurologic: Follows commands. Moves all 4 extremities. DIAGNOSTIC DATA: Additional blood work shows sodium 143, potassium 3.9, BUN is normal creatinine 0.7. Troponin is pending. IMPRESSION: 1. The patient presented with chest pain that is really atypical, pleuritic. 2. The patient is with paroxysmal atrial fibrillation. This is probably the reason for her symptoms. 3. Non-ST myocardial infarction, question of. 4. Coronary heart disease, previous stent to right coronary artery and embolic occlusion of the apical LAD, probably from paroxysmal atrial fibrillation. 5. Medical noncompliance. 6. Hyperlipidemia. RECOMMENDATIONS: At this time, we will keep on checking troponins. We will switch her over to sotalol and see what response we get from sotalol. I am afraid of putting her on medication that she will not comply with, like amiodarone. Further advice will be forthcoming. cc: Osman Barrera MD MTDD
--- NOTE | 2019-10-04 12:18 | Diag Imaging Result Doc PS360 ---
EXAM: CT ANGIOGRM PULMONARY ARTERIES 10/04/2019 HISTORY: chest pain TECHNIQUE: This exam was performed using automated exposure control, adjustment of mA or kV according to patient size, and/or use of iterative reconstruction technique. COMMENT: There are no previous studies available for comparison. There are no filling defects in the pulmonary arteries. There is some apical pleural fibrosis bilaterally. There are patchy areas of emphysematous change bilaterally. No consolidation is present. The aorta is normal in caliber. There are some atherosclerotic calcifications but no evidence of dissection is present. There is no evidence of significant adenopathy. There is a small left pleural effusion. IMPRESSION: No evidence of pulmonary emboli. COPD and atherosclerosis. Small left pleural effusion. Electronically signed by Bari Wang 10/04/2019 12:15 PM
[2019-10-04] MEDS: BETAPACE PO SCH (20:10)
[2019-10-04] MEDS: PROTONIX IV SCH (20:19)
[2019-10-05] MEDS: PRILOSEC PO SCH ×2 (05:42→06:14)
[2019-10-05 06:27] LABS: AGAP 13; BUN 12 mg/dL (8-22); CALCIUM 8.8 mg/dL (8.8-10.2); CHLORIDE 101 mmol/L (98-107); COSMO 281; CREATININE 0.8 mg/dL (0.5-0.9); ESTIMATED GFR > 60; GLUCOSE 94 mg/dL (70-104); POTASSIUM 4.3 mmol/L (3.5-5.1); SODIUM 141 mmol/L (136-145); TCO2 27 mmol/L (25-35)
--- NOTE | 2019-10-05 07:32 | EKG Report ---
Test Performed on : 10/05/2019 07:57:18 AM Test Reason : paroxysmal atrial fibrillation Blood Pressure : / mmHG Vent. Rate : 061 BPM Atrial Rate : 061 BPM P-R Int : 160 ms QRS Dur : 088 ms QT Int : 422 ms P-R-T Axes : 044 039 097 degrees QTc Int : 424 ms Normal sinus rhythm. Anteroseptal infarct (cited on or before 17-SEP-2018) Abnormal ECG When compared with ECG of 04-OCT-2019 09:47, (Unconfirmed) premature atrial complexes. are no longer present Questionable change in initial forces of Anterior leads Unconfirmed Result
[2019-10-05] MEDS: BETAPACE PO SCH ×2 (09:12→21:28)
[2019-10-05] MEDS: ELIQUIS PO SCH ×2 (09:12→21:28)
[2019-10-05] MEDS: LIPITOR PO SCH (09:12)
[2019-10-05] MEDS: LASIX PO SCH (09:13)
[2019-10-05] MEDS: ASPIRIN PO SCH (09:13)
[2019-10-05] MEDS: ALDACTONE PO SCH (09:13)
--- NOTE | 2019-10-05 10:57 | CARDIOLOGY PROGRESS NOTE ---
DATE: 10/05/2019 CHIEF COMPLAINT: Atypical chest discomfort, irregular heartbeat. SUBJECTIVE: Ms. Palma is complaining this morning of low back pain. She is starting to blame Eliquis for her discomfort. Otherwise, she seems to be about the same as yesterday. OBJECTIVE: Blood pressure is 116/49, temperature 97.9, pulse 62, respirations 17. She is awake, alert and oriented, no distress. HEENT is unremarkable. Chest: Diminished breath sounds diffusely. Heart sounds are regular and rhythmic. No gallop or murmur. Abdomen is nontender. Extremities showed no edema. Neurologic: Follows commands. Moves all 4 extremities. DIAGNOSTIC DATA: Blood work shows sodium 141, potassium 4.3, BUN is 12, creatinine 0.8. Troponin is trending down and now is 0.032. EKG done this morning shows sinus rhythm, QTC is 424, old anteroseptal scar. A chest CT was done yesterday, and that shows COPD, a small left pleural effusion, atherosclerosis and no evidence of pulmonary emboli. IMPRESSION: 1. The patient presented to the hospital with Atypical chest discomfort. This sounds very pleuritic. 2. Paroxysmal atrial fibrillation. 3. Coronary heart disease, previous myocardial infarction, with chronic LV systolic dysfunction. 4. Prior stent to right coronary artery. 5. Hyperlipidemia. 6. Medical noncompliance. RECOMMENDATIONS: At this time, we have initiated sotalol, and she seems to be tolerating it. We will have to monitor her ECG for another day or two to make sure that we do not create any significant QT prolongation. Otherwise, she might get to go home on sotalol. Because of her LV dysfunction and prior myocardial infarction, she is at high risk for embolic events, especially with her age. She is already starting to find reasons to discontinue Eliquis, and at this point in time, I really have no further comments about that. If the patient is going to be medically noncompliant, there is not a whole lot that I can do for her. She needs to follow up with a primary medical doctor, and I would be glad to follow her at the office if she wishes to adhere to a medical regimen. Otherwise, she needs to find a physician that will accept her noncompliance. cc: MD GAETANO Lamb
--- NOTE | 2019-10-05 13:03 | PROGRESS NOTE ---
DATE: 10/05/2019 SUBJECTIVE: This morning, Ms. Palma refers to be doing well. She denies any new complaints. She refers that the left shoulder was hurting her a little bit today. OBJECTIVE: Vital Signs: Blood pressure is 96/41, pulse of 60, respirations are 18, temperature is 98.6 degrees. General Examination: Ms. Palma is 69-year-old, female. She is in bed. No distress. HEENT: Mucosa is pink and moist. Anicteric. Acyanotic. Neck: Supple. Chest: Clear to auscultation. No crepitations. No rhonchi. Cardiovascular: Regular rate and rhythm. GI: Abdomen is soft, nontender. Bowel sounds present. Extremities: No pedal edema. 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 Laboratory Data: Chemistry is completely within normal range. EKG this morning continues to show a normal sinus rhythm with a rate of about 61. The QT is about 422. ASSESSMENT: 1. Elevated troponin on presentation, concerning for a non-ST elevation myocardial infarction versus demand ischemia from tachyarrhythmia. Troponins have normalized. 2. Paroxysmal atrial fibrillation with rapid ventricular response on presentation, improved. The patient is currently in sinus. She has been switched to sotalol. 3. Folate deficiency on prior admission. We will continue with supplements. 4. Cholelithiasis without cholecystitis. Patient is aware. 5. Ischemic cardiomyopathy, status post stents in the past. 6. Systolic dysfunction with ejection fraction of 25%. The patient is currently euvolemic. 7. Left shoulder pain. The patient is, however, able to move it in all planes. We are going to continue with pain management. PLAN: In general, I think Ms. Palma is doing a lot better. Troponins have normalized. She denies any chest pain. She continues to be in sinus rhythm. She was started on sotalol yesterday. As per cardiology documentation, the plan to observe her a day or two more, and follow up on her QT to make sure it is not prolonging, to make sure there is no significant prolongation before she gets discharged. cc: Heriberto Soria MD
[2019-10-06 06:07] LABS: AGAP 11; BUN 16 mg/dL (8-22); CALCIUM 8.7 mg/dL (8.8-10.2); CHLORIDE 102 mmol/L (98-107); COSMO 282; CREATININE 0.7 mg/dL (0.5-0.9); ESTIMATED GFR > 60; GLUCOSE 83 mg/dL (70-104); POTASSIUM 4.3 mmol/L (3.5-5.1); SODIUM 141 mmol/L (136-145); TCO2 28 mmol/L (25-35)
[2019-10-06] MEDS: PRILOSEC PO SCH (06:27)
--- NOTE | 2019-10-06 07:13 | EKG Report ---
Test Performed on : 10/06/2019 06:45:55 AM Test Reason : paroxysmal atrial fibrillation Blood Pressure : / mmHG Vent. Rate : 059 BPM Atrial Rate : 059 BPM P-R Int : 170 ms QRS Dur : 090 ms QT Int : 432 ms P-R-T Axes : 052 050 094 degrees QTc Int : 427 ms Sinus bradycardia. Anteroseptal infarct (cited on or before 17-SEP-2018) Abnormal ECG When compared with ECG of 05-OCT-2019 07:57, No significant change was found Unconfirmed Result
--- NOTE | 2019-10-06 08:20 | CARDIOLOGY PROGRESS NOTE ---
DATE: 10/06/2019 CHIEF COMPLAINT: Palpitations, chest discomfort, pleuritic pain. SUBJECTIVE: Mrs. Palma is just complaining of left shoulder pain. This pain is really arthritic, it hurts when she lifts the shoulder. It has nothing to do with ischemia. Her EKG this morning shows sinus bradycardia, rate 59 beats per minute, QTc 427. It does not look much different than the one from yesterday. She is tolerating sotalol. Her laboratory work today, sodium 141, potassium 4.3, BUN 16, creatinine 0.7. OBJECTIVE: Vital signs: Temperature 97.5, pulse 66, respirations 18, blood pressure 114/46. Telemetry indicates no evidence of any atrial fibrillation. Chest: Clear to auscultation and percussion. Heart: Sounds regular and rhythmic. No gallop or murmur. Abdomen: Nontender. Extremities: Showed no edema. There is tenderness to palpation of the left shoulder. There is pain to motion especially elevation or abduction. Neurological exam: Follows commands, moves all 4 extremities. IMPRESSION: 1. Patient who presented with paroxysmal atrial fibrillation. 2. Chest pain, atypical. 3. Severe coronary heart disease. 4. Prior stent to right coronary artery and occlusion of apical left anterior descending probably from embolic phenomena. 5. Hyperlipidemia. RECOMMENDATIONS: At this time, the patient can probably be discharged with the current medicines including atorvastatin 40 mg daily, sotalol 80 mg twice a day, spironolactone 25 daily, furosemide 20 mg daily, apixaban 5 mg twice a day, and the aspirin can probably be minimized to 81 mg daily. There is no need to keep her on high dose aspirin. We will arrange for her to follow up at the office with Dr. Rajput, who just saw her as first cardiac consultation on 09/27. Please call me if you have any questions or concerns. cc: Osman Barrera MD
[2019-10-06] MEDS: ALDACTONE PO SCH (08:54)
[2019-10-06] MEDS: LIPITOR PO SCH (08:54)
[2019-10-06] MEDS: LASIX PO SCH (08:54)
[2019-10-06] MEDS: BETAPACE PO SCH (08:54)
[2019-10-06] MEDS: ELIQUIS PO SCH (08:54)
[2019-10-06] MEDS ORDERED: ASPIRIN PO SCH (09:00)
[2019-10-06 14:17] VITALS: BP 113/48
--- NOTE | 2019-10-07 12:38 | DISCHARGE SUMMARY ---
ADMISSION DATE: 10/02/2019 DISCHARGE DATE: 10/06/2019 DISPOSITION: Home. FOLLOWUP: 1. Dr. Jesse Rajput. 2. Dr. Reina. CONSULTATION DURING THIS ADMISSION: Cardiology was consulted. Patient was seen by Dr. Barrera. INVASIVE PROCEDURES DONE DURING THIS ADMISSION: None. IMAGING STUDIES OF SIGNIFICANCE: 1. A chest x-ray done on 10/02/2019 showed negative exam. 2. A CTA of the lungs done on 10/04/2019 showed no evidence of pulmonary emboli, COPD, and atherosclerosis. Small left pleural effusion. ADMISSION DIAGNOSES: 1. Chest pain. 2. Atrial fibrillation with rapid ventricular response. 3. Hypertension. 4. Dyslipidemia. 5. Coronary artery disease. DIAGNOSES AT THE TIME OF DISCHARGE: 1. Elevated troponin on presentation concerning for non-ST elevation myocardial infarction versus demand ischemia from tachyarrhythmias. Troponins normalized during the hospital course. 2. Paroxysmal atrial fibrillation with rapid ventricular response on presentation, controlled. Patient is actually in sinus. She has been switched to sotalol. 3. Folate deficiency. 4. Cholelithiasis without cholecystitis. Patient is aware. Has been advised to follow up with Dr. Reina. 5. Ischemic cardiomyopathy, status post stents in the past. 6. Systolic dysfunction with ejection fraction of 25%. The patient is euvolemic at this point. DISCHARGE MEDICATIONS: 1. Lisinopril 20 mg p.o. daily. 2. Furosemide 20 mg p.o. daily. 3. Aspirin 81 mg p.o. daily. 4. Eliquis 5 mg b.i.d. 5. Atorvastatin 40 mg p.o. daily. 6. Spironolactone 25 mg p.o. daily. 7. Sotalol 80 mg p.o. b.i.d. PRESENTING COMPLAINT: Chest pain for 9 hours. HISTORY OF PRESENTING COMPLAINT: Ms. Palma is a 69-year-old, female who was discharged from the hospital 2 days prior to this recent admission. Apparently, she said she started having some chest pain and heart palpitations. Upon presenting to the emergency department, she was evaluated. She was found to be in atrial fibrillation with RVR, with a rate of about 150-160. She did also have elevated troponins of 0.242. Ms. Palma was admitted to [facility] for medical management. HOSPITAL COURSE: Ms. Palma was initially admitted in [facility], was started on IV Cardizem. Troponins were trended, which continue to improve and became normalized. The patient was seen and evaluated by cardiology. Dr. Barrera made some changes to her medications including adding sotalol. Ms. Palma got spontaneously converted to sinus and is under rate control. She has been advised on medication compliance and followup with cardiology over here. This morning, Ms. Palma denies any chest pain. She feels a lot better. No vomiting. She has been tolerating her diet. We think she is in stable condition to be discharged. Was evaluated today by cardiology. Dr. Barrera agrees that the patient can be discharged on the current regimen of medications and to follow up with Dr. Rajput. Her current vitals, blood pressure is 103/48, pulse is 93, respirations are 18, temperature is 97.4 degrees. Physical exam is unremarkable. She is in sinus rhythm at this point. She will be discharged in stable condition. All the discharge instructions have been discussed with her. She voiced understanding. Time spent for discharge is 35 minutes. cc: Heriberto Soria MD
== END 2019-10-06 14:36 | disposition home or self-care (01) | DRG 282 ==
LOC: ED 14:20 → 2N 20:47 → SUATTDRO 20:47
PROVIDERS: ATTEND Internal Medicine